=== PATIENT | female | born 1930 | race Two or more races ===

== ENCOUNTER 2017-09-24 10:30 | Outpatient (CLI) | payer MEDICARE, MEDICAID ==
[~2017-09-24 10:30] MED LIST: ALEN70TA45 PO; CALC-20 PO; HYDR25TA9 PO; OMEP20CA10 PO; OSTEO BI-FLEX1 EACH PO; PRED5TAB48 PO
== END 2017-09-24 23:59 | disposition home health service (06) ==
LOC: WOU 10:30
PROVIDERS: ATTEND Podiatrist Foot & Ankle Surgery
DX: I87.311 Chronic venous hypertension (idiopathic) with ulcer of right lower extremity (principal); L97.318 Non-pressure chronic ulcer of right ankle with other specified severity; G90.09 Other idiopathic peripheral autonomic neuropathy; Z96.643 Presence of artificial hip joint, bilateral; Z96.651 Presence of right artificial knee joint; F03.90 Unspecified dementia, unspecified severity, without behavioral disturbance, psychotic disturbance, mood disturbance, and anxiety
CPT/HCPCS: A6402; G0463

== ENCOUNTER 2017-10-05 09:00 | Outpatient (CLI) | payer MEDICARE, MEDICAID | END 2017-10-05 23:59 | disposition home health service (06) | LOC: WOU 09:00 | PROVIDERS: ATTEND Podiatrist Foot & Ankle Surgery | DX: I87.311 Chronic venous hypertension (idiopathic) with ulcer of right lower extremity (principal); L97.312 Non-pressure chronic ulcer of right ankle with fat layer exposed; M79.661 Pain in right lower leg; G90.09 Other idiopathic peripheral autonomic neuropathy; Z96.643 Presence of artificial hip joint, bilateral; Z96.651 Presence of right artificial knee joint; F03.90 Unspecified dementia, unspecified severity, without behavioral disturbance, psychotic disturbance, mood disturbance, and anxiety; Z88.0 Allergy status to penicillin; Z88.2 Allergy status to sulfonamides; Z79.899 Other long term (current) drug therapy | CPT/HCPCS: 11042; A6402; Z7610 ==

== ENCOUNTER 2017-10-12 10:05 | Outpatient (CLI) | payer MEDICARE, MEDICAID | END 2017-10-12 23:59 | disposition home health service (06) | LOC: WOU 10:05 | PROVIDERS: ATTEND Podiatrist Foot & Ankle Surgery | DX: I87.311 Chronic venous hypertension (idiopathic) with ulcer of right lower extremity (principal); L97.312 Non-pressure chronic ulcer of right ankle with fat layer exposed; M79.661 Pain in right lower leg; I87.2 Venous insufficiency (chronic) (peripheral); G90.09 Other idiopathic peripheral autonomic neuropathy | CPT/HCPCS: 11042; A6253; A6402; Z7610 ==

== ENCOUNTER 2017-10-19 10:30 | Outpatient (CLI) | payer MEDICARE, MEDICAID | END 2017-10-19 23:59 | disposition home health service (06) | LOC: WOU 10:30 | PROVIDERS: ATTEND Podiatrist Foot & Ankle Surgery | DX: I87.311 Chronic venous hypertension (idiopathic) with ulcer of right lower extremity (principal); L97.312 Non-pressure chronic ulcer of right ankle with fat layer exposed; M79.661 Pain in right lower leg; I87.2 Venous insufficiency (chronic) (peripheral); G90.09 Other idiopathic peripheral autonomic neuropathy | CPT/HCPCS: 11042; A6402; Z7610 ==

== ENCOUNTER 2017-10-26 10:56 | Outpatient (CLI) | payer MEDICARE, MEDICAID | END 2017-10-26 23:59 | disposition home health service (06) | LOC: WOU 10:56 | PROVIDERS: ATTEND Podiatrist Foot & Ankle Surgery | DX: I87.311 Chronic venous hypertension (idiopathic) with ulcer of right lower extremity (principal); L97.312 Non-pressure chronic ulcer of right ankle with fat layer exposed; M79.661 Pain in right lower leg; G90.09 Other idiopathic peripheral autonomic neuropathy; I73.9 Peripheral vascular disease, unspecified; Z96.643 Presence of artificial hip joint, bilateral; F03.90 Unspecified dementia, unspecified severity, without behavioral disturbance, psychotic disturbance, mood disturbance, and anxiety; Z88.0 Allergy status to penicillin; Z88.2 Allergy status to sulfonamides; Z79.899 Other long term (current) drug therapy | CPT/HCPCS: 11042; A6402; Z7610 ==

== ENCOUNTER 2017-11-02 10:00 | Outpatient (CLI) | payer MEDICARE, MEDICAID | END 2017-11-02 23:59 | disposition home health service (06) | LOC: WOU 10:00 | PROVIDERS: ATTEND Podiatrist Foot & Ankle Surgery | DX: I87.311 Chronic venous hypertension (idiopathic) with ulcer of right lower extremity (principal); L97.312 Non-pressure chronic ulcer of right ankle with fat layer exposed; G90.09 Other idiopathic peripheral autonomic neuropathy; I73.9 Peripheral vascular disease, unspecified; M79.661 Pain in right lower leg; F03.90 Unspecified dementia, unspecified severity, without behavioral disturbance, psychotic disturbance, mood disturbance, and anxiety; Z96.643 Presence of artificial hip joint, bilateral; Z96.651 Presence of right artificial knee joint | CPT/HCPCS: 11042; A6402; Z7610 ==

== ENCOUNTER 2017-11-09 10:54 | Outpatient (CLI) | payer MEDICARE, MEDICAID | END 2017-11-09 23:59 | disposition home or self-care (01) | LOC: WOU 10:54 | PROVIDERS: ATTEND Podiatrist Foot & Ankle Surgery | DX: I87.311 Chronic venous hypertension (idiopathic) with ulcer of right lower extremity (principal); L97.318 Non-pressure chronic ulcer of right ankle with other specified severity; I73.9 Peripheral vascular disease, unspecified; G90.09 Other idiopathic peripheral autonomic neuropathy; M79.661 Pain in right lower leg; F03.90 Unspecified dementia, unspecified severity, without behavioral disturbance, psychotic disturbance, mood disturbance, and anxiety; Z96.643 Presence of artificial hip joint, bilateral; Z96.651 Presence of right artificial knee joint | CPT/HCPCS: G0463; Z7610 ==

== ENCOUNTER 2017-11-16 10:34 | Outpatient (CLI) | payer MEDICARE, MEDICAID | END 2017-11-16 23:59 | disposition home health service (06) | LOC: WOU 10:34 | PROVIDERS: ATTEND Podiatrist Foot & Ankle Surgery | DX: I87.311 Chronic venous hypertension (idiopathic) with ulcer of right lower extremity (principal); L97.322 Non-pressure chronic ulcer of left ankle with fat layer exposed; L03.115 Cellulitis of right lower limb; G90.09 Other idiopathic peripheral autonomic neuropathy; I73.9 Peripheral vascular disease, unspecified; F03.90 Unspecified dementia, unspecified severity, without behavioral disturbance, psychotic disturbance, mood disturbance, and anxiety; Z96.643 Presence of artificial hip joint, bilateral; Z96.651 Presence of right artificial knee joint | CPT/HCPCS: 11042; A6402; Z7610 ==

== ENCOUNTER 2017-11-30 10:15 | Outpatient (CLI) | payer MEDICARE, MEDICAID | END 2017-11-30 23:59 | disposition home health service (06) | LOC: WOU 10:15 | PROVIDERS: ATTEND Podiatrist Foot & Ankle Surgery | DX: I87.311 Chronic venous hypertension (idiopathic) with ulcer of right lower extremity (principal); L97.312 Non-pressure chronic ulcer of right ankle with fat layer exposed; L60.3 Nail dystrophy; G90.09 Other idiopathic peripheral autonomic neuropathy; I73.9 Peripheral vascular disease, unspecified; M79.661 Pain in right lower leg; Z96.643 Presence of artificial hip joint, bilateral; Z96.651 Presence of right artificial knee joint | CPT/HCPCS: 11042; A6402; Z7610 ==

== ENCOUNTER 2017-12-07 11:14 | Outpatient (CLI) | payer MEDICARE, MEDICAID | END 2017-12-07 23:59 | disposition home health service (06) | LOC: WOU 11:14 | PROVIDERS: ATTEND Podiatrist Foot & Ankle Surgery | DX: I87.311 Chronic venous hypertension (idiopathic) with ulcer of right lower extremity (principal); L97.312 Non-pressure chronic ulcer of right ankle with fat layer exposed; M79.661 Pain in right lower leg; I73.9 Peripheral vascular disease, unspecified; G90.09 Other idiopathic peripheral autonomic neuropathy; L60.3 Nail dystrophy; F03.90 Unspecified dementia, unspecified severity, without behavioral disturbance, psychotic disturbance, mood disturbance, and anxiety; Z96.643 Presence of artificial hip joint, bilateral; Z96.651 Presence of right artificial knee joint; Z79.899 Other long term (current) drug therapy | CPT/HCPCS: 11042; A6402; Z7610 ==

== ENCOUNTER 2017-12-23 10:20 | Outpatient (CLI) | payer MEDICARE, MEDICAID | END 2017-12-23 23:59 | disposition home or self-care (01) | LOC: WOU 10:20 | PROVIDERS: ATTEND Podiatrist Foot & Ankle Surgery | DX: I87.311 Chronic venous hypertension (idiopathic) with ulcer of right lower extremity (principal); L97.312 Non-pressure chronic ulcer of right ankle with fat layer exposed; L97.818 Non-pressure chronic ulcer of other part of right lower leg with other specified severity; Z96.643 Presence of artificial hip joint, bilateral; Z96.651 Presence of right artificial knee joint; F03.90 Unspecified dementia, unspecified severity, without behavioral disturbance, psychotic disturbance, mood disturbance, and anxiety; Z88.0 Allergy status to penicillin; Z88.2 Allergy status to sulfonamides; G62.9 Polyneuropathy, unspecified | CPT/HCPCS: A6402; G0463; Z7610 ==

== ENCOUNTER 2018-01-07 10:29 | Outpatient (CLI) | payer MEDICARE, MEDICAID | END 2018-01-07 23:59 | disposition home or self-care (01) | LOC: WOU 10:29 | PROVIDERS: ATTEND Podiatrist Foot & Ankle Surgery | DX: I87.311 Chronic venous hypertension (idiopathic) with ulcer of right lower extremity (principal); L97.818 Non-pressure chronic ulcer of other part of right lower leg with other specified severity; L60.3 Nail dystrophy; M79.661 Pain in right lower leg; G90.09 Other idiopathic peripheral autonomic neuropathy; I73.9 Peripheral vascular disease, unspecified; Z96.643 Presence of artificial hip joint, bilateral; Z96.651 Presence of right artificial knee joint; Z88.1 Allergy status to other antibiotic agents; Z88.0 Allergy status to penicillin; Z88.2 Allergy status to sulfonamides | CPT/HCPCS: A6402; G0463; Z7610 ==

== ENCOUNTER 2018-01-21 10:50 | Outpatient (CLI) | payer MEDICARE, MEDICAID | END 2018-01-21 23:59 | disposition home health service (06) | LOC: WOU 10:50 | PROVIDERS: ATTEND Podiatrist Foot & Ankle Surgery | DX: I87.311 Chronic venous hypertension (idiopathic) with ulcer of right lower extremity (principal); L97.812 Non-pressure chronic ulcer of other part of right lower leg with fat layer exposed; L60.3 Nail dystrophy; G90.09 Other idiopathic peripheral autonomic neuropathy; L84 Corns and callosities; I73.9 Peripheral vascular disease, unspecified; Z96.643 Presence of artificial hip joint, bilateral; Z96.651 Presence of right artificial knee joint | CPT/HCPCS: 11042; A6402; Z7610 ==

== ENCOUNTER 2018-03-11 11:00 | Outpatient (CLI) | payer MEDICARE, MEDICAID | END 2018-03-11 23:59 | disposition home health service (06) | LOC: WOU 11:00 | PROVIDERS: ATTEND Podiatrist Foot & Ankle Surgery | DX: I87.311 Chronic venous hypertension (idiopathic) with ulcer of right lower extremity (principal); L97.812 Non-pressure chronic ulcer of other part of right lower leg with fat layer exposed; L84 Corns and callosities; L60.3 Nail dystrophy; G90.09 Other idiopathic peripheral autonomic neuropathy; I73.9 Peripheral vascular disease, unspecified; Z88.0 Allergy status to penicillin; Z88.2 Allergy status to sulfonamides; F03.90 Unspecified dementia, unspecified severity, without behavioral disturbance, psychotic disturbance, mood disturbance, and anxiety; Z96.643 Presence of artificial hip joint, bilateral; Z96.651 Presence of right artificial knee joint | CPT/HCPCS: A6402; G0463; Z7610 ==

== ENCOUNTER 2018-03-25 10:45 | Outpatient (CLI) | payer MEDICARE, MEDICAID | END 2018-03-25 23:59 | disposition home health service (06) | LOC: WOU 10:45 | PROVIDERS: ATTEND Podiatrist Foot & Ankle Surgery | DX: I87.311 Chronic venous hypertension (idiopathic) with ulcer of right lower extremity (principal); L97.812 Non-pressure chronic ulcer of other part of right lower leg with fat layer exposed; L84 Corns and callosities; M79.662 Pain in left lower leg; L60.3 Nail dystrophy; I73.9 Peripheral vascular disease, unspecified; M79.672 Pain in left foot; F03.90 Unspecified dementia, unspecified severity, without behavioral disturbance, psychotic disturbance, mood disturbance, and anxiety; Z96.643 Presence of artificial hip joint, bilateral; Z96.651 Presence of right artificial knee joint; G62.9 Polyneuropathy, unspecified; Z79.899 Other long term (current) drug therapy | CPT/HCPCS: 11042; 11056; A6402; Z7610 ==

== ENCOUNTER 2018-04-08 11:09 | Outpatient (CLI) | END 2018-04-08 23:59 | disposition home health service (06) | DX: I87.311 Chronic venous hypertension (idiopathic) with ulcer of right lower extremity (principal); L97.812 Non-pressure chronic ulcer of other part of right lower leg with fat layer exposed; L60.3 Nail dystrophy; L84 Corns and callosities; G90.09 Other idiopathic peripheral autonomic neuropathy; L03.115 Cellulitis of right lower limb; I73.9 Peripheral vascular disease, unspecified; I87.2 Venous insufficiency (chronic) (peripheral); F03.90 Unspecified dementia, unspecified severity, without behavioral disturbance, psychotic disturbance, mood disturbance, and anxiety ==

== ENCOUNTER 2018-05-06 10:50 | Outpatient (CLI) | payer MEDICARE, MEDICAID ==
[~2018-05-06 10:50] MED LIST changes: -ALEN70TA45 PO; +ALEN70TA6 PO
== END 2018-05-06 23:59 | disposition home health service (06) ==
LOC: WOU 10:50
PROVIDERS: ATTEND Podiatrist Foot & Ankle Surgery
DX: I87.311 Chronic venous hypertension (idiopathic) with ulcer of right lower extremity (principal); L97.812 Non-pressure chronic ulcer of other part of right lower leg with fat layer exposed; L60.3 Nail dystrophy; I87.2 Venous insufficiency (chronic) (peripheral); L84 Corns and callosities; G90.09 Other idiopathic peripheral autonomic neuropathy; Z96.643 Presence of artificial hip joint, bilateral; Z96.651 Presence of right artificial knee joint; Z79.899 Other long term (current) drug therapy; Z88.1 Allergy status to other antibiotic agents; Z88.0 Allergy status to penicillin; Z88.2 Allergy status to sulfonamides
CPT/HCPCS: 11042; A6402

== ENCOUNTER 2018-05-20 11:10 | Outpatient (CLI) | payer MEDICARE, MEDICAID | END 2018-05-20 23:59 | disposition home health service (06) | LOC: WOU 11:10 | PROVIDERS: ATTEND Podiatrist Foot & Ankle Surgery | DX: I87.311 Chronic venous hypertension (idiopathic) with ulcer of right lower extremity (principal); L97.812 Non-pressure chronic ulcer of other part of right lower leg with fat layer exposed; I73.9 Peripheral vascular disease, unspecified; G90.09 Other idiopathic peripheral autonomic neuropathy; L60.3 Nail dystrophy; L84 Corns and callosities; M79.661 Pain in right lower leg | CPT/HCPCS: 11042; A6402 ==

== ENCOUNTER 2018-06-03 11:05 | Outpatient (CLI) | payer MEDICARE, MEDICAID | END 2018-06-03 23:59 | disposition home health service (06) | LOC: WOU 11:05 | PROVIDERS: ATTEND Podiatrist Foot & Ankle Surgery | DX: I87.311 Chronic venous hypertension (idiopathic) with ulcer of right lower extremity (principal); L97.812 Non-pressure chronic ulcer of other part of right lower leg with fat layer exposed; Z96.643 Presence of artificial hip joint, bilateral; Z96.651 Presence of right artificial knee joint; F03.90 Unspecified dementia, unspecified severity, without behavioral disturbance, psychotic disturbance, mood disturbance, and anxiety; Z88.0 Allergy status to penicillin; Z88.2 Allergy status to sulfonamides; I73.9 Peripheral vascular disease, unspecified; G90.09 Other idiopathic peripheral autonomic neuropathy; L84 Corns and callosities; L60.3 Nail dystrophy | CPT/HCPCS: 11042; A6402 ==

== ENCOUNTER 2018-06-17 10:45 | Outpatient (CLI) | payer MEDICARE, MEDICAID | END 2018-06-17 23:59 | disposition home health service (06) | LOC: WOU 10:45 | PROVIDERS: ATTEND Podiatrist Foot & Ankle Surgery | DX: I87.311 Chronic venous hypertension (idiopathic) with ulcer of right lower extremity (principal); L97.312 Non-pressure chronic ulcer of right ankle with fat layer exposed; L84 Corns and callosities; L60.3 Nail dystrophy; I73.9 Peripheral vascular disease, unspecified; G90.09 Other idiopathic peripheral autonomic neuropathy; Z96.643 Presence of artificial hip joint, bilateral; Z96.651 Presence of right artificial knee joint; M79.672 Pain in left foot; M79.671 Pain in right foot; Z79.899 Other long term (current) drug therapy | CPT/HCPCS: 11042; 11056; A6402 ==

== ENCOUNTER 2018-07-01 11:30 | Outpatient (CLI) | payer MEDICARE, MEDICAID | END 2018-07-01 23:59 | disposition home health service (06) | LOC: WOU 11:30 | PROVIDERS: ATTEND Podiatrist Foot & Ankle Surgery | DX: I87.311 Chronic venous hypertension (idiopathic) with ulcer of right lower extremity (principal); L97.312 Non-pressure chronic ulcer of right ankle with fat layer exposed; M79.662 Pain in left lower leg; M79.661 Pain in right lower leg; L60.3 Nail dystrophy; G90.09 Other idiopathic peripheral autonomic neuropathy; I73.9 Peripheral vascular disease, unspecified; F03.90 Unspecified dementia, unspecified severity, without behavioral disturbance, psychotic disturbance, mood disturbance, and anxiety; Z79.899 Other long term (current) drug therapy | CPT/HCPCS: 11042; A6402 ==

== ENCOUNTER 2018-07-08 11:30 | Outpatient (CLI) | payer MEDICARE, MEDICAID ==
[2018-07-08] MEDS ORDERED: ETHYL CHLORIDE SPRAY 1 EA BOTTLE TP ONE (13:30)
== END 2018-07-08 23:59 | disposition home health service (06) ==
LOC: WOU 11:30
PROVIDERS: ATTEND Podiatrist Foot & Ankle Surgery
DX: I87.311 Chronic venous hypertension (idiopathic) with ulcer of right lower extremity (principal); L97.812 Non-pressure chronic ulcer of other part of right lower leg with fat layer exposed; M79.662 Pain in left lower leg; L60.3 Nail dystrophy; G90.09 Other idiopathic peripheral autonomic neuropathy; I73.9 Peripheral vascular disease, unspecified; Z96.643 Presence of artificial hip joint, bilateral; Z96.651 Presence of right artificial knee joint; Z79.899 Other long term (current) drug therapy
CPT/HCPCS: 11042; A6402; J3490; 88305-TC; 88312-TC

== ENCOUNTER 2018-07-22 11:30 | Outpatient (CLI) | payer MEDICARE, MEDICAID | END 2018-07-22 23:59 | disposition home health service (06) | LOC: WOU 11:30 | PROVIDERS: ATTEND Podiatrist Foot & Ankle Surgery | DX: I87.311 Chronic venous hypertension (idiopathic) with ulcer of right lower extremity (principal); L97.822 Non-pressure chronic ulcer of other part of left lower leg with fat layer exposed; L84 Corns and callosities; L60.3 Nail dystrophy; G90.09 Other idiopathic peripheral autonomic neuropathy; I73.9 Peripheral vascular disease, unspecified; Z96.643 Presence of artificial hip joint, bilateral; Z96.651 Presence of right artificial knee joint; Z79.899 Other long term (current) drug therapy | CPT/HCPCS: 11042; A6402 ==

== ENCOUNTER → 2020-05-25 | Outpatient (CLI) | payer MEDICARE, MEDICAID ==
[~2020-05-25] MED LIST changes: -ALEN70TA6 PO; +ALEN70TA80 PO; +CALC-1180 PO; -CALC-20 PO; -OMEP20CA10 PO; +OMEP20CA15 PO
== END | disposition home or self-care (01) ==
LOC: MSC 14:30
PROVIDERS: ATTEND Internal Medicine
DX: Z09 Encounter for follow-up examination after completed treatment for conditions other than malignant neoplasm (principal); R42 Dizziness and giddiness; M79.673 Pain in unspecified foot; N04.0 Nephrotic syndrome with minor glomerular abnormality; I82.409 Acute embolism and thrombosis of unspecified deep veins of unspecified lower extremity; G90.09 Other idiopathic peripheral autonomic neuropathy; M81.0 Age-related osteoporosis without current pathological fracture; G44.229 Chronic tension-type headache, not intractable; I10 Essential (primary) hypertension; H26.9 Unspecified cataract; D64.9 Anemia, unspecified; R73.9 Hyperglycemia, unspecified; R60.9 Edema, unspecified; H91.90 Unspecified hearing loss, unspecified ear; Z79.899 Other long term (current) drug therapy

== ENCOUNTER → 2020-06-08 | Outpatient (CLI) | payer MEDICARE, MEDICAID | END | disposition home or self-care (01) | LOC: MSC 17:15 | PROVIDERS: ATTEND Internal Medicine | DX: N04.0 Nephrotic syndrome with minor glomerular abnormality (principal); I82.409 Acute embolism and thrombosis of unspecified deep veins of unspecified lower extremity; E11.9 Type 2 diabetes mellitus without complications; G90.09 Other idiopathic peripheral autonomic neuropathy; M81.0 Age-related osteoporosis without current pathological fracture; M19.90 Unspecified osteoarthritis, unspecified site; G44.229 Chronic tension-type headache, not intractable; M79.673 Pain in unspecified foot; R42 Dizziness and giddiness; I10 Essential (primary) hypertension; H26.9 Unspecified cataract; D64.9 Anemia, unspecified; R60.9 Edema, unspecified; H91.90 Unspecified hearing loss, unspecified ear; Z79.899 Other long term (current) drug therapy ==

== ENCOUNTER 2020-06-27 10:15 | Outpatient (CLI) | payer MEDICARE, MEDICAID | END 2020-06-27 23:59 | disposition home or self-care (01) | LOC: MSC 10:15 | PROVIDERS: ATTEND Internal Medicine | DX: N04.0 Nephrotic syndrome with minor glomerular abnormality (principal); I82.409 Acute embolism and thrombosis of unspecified deep veins of unspecified lower extremity; G90.09 Other idiopathic peripheral autonomic neuropathy; M81.0 Age-related osteoporosis without current pathological fracture; M19.90 Unspecified osteoarthritis, unspecified site; G44.229 Chronic tension-type headache, not intractable; M79.673 Pain in unspecified foot; R42 Dizziness and giddiness; I10 Essential (primary) hypertension; H26.9 Unspecified cataract; D64.9 Anemia, unspecified; R73.9 Hyperglycemia, unspecified; R60.9 Edema, unspecified; H91.90 Unspecified hearing loss, unspecified ear; Z79.899 Other long term (current) drug therapy ==

== ENCOUNTER 2020-07-18 10:11 | Outpatient (CLI) | payer MEDICARE, OTHER | END 2020-07-18 23:59 | disposition home or self-care (01) | LOC: CT 10:11 | PROVIDERS: ATTEND Internal Medicine | DX: E04.2 Nontoxic multinodular goiter (principal); I70.0 Atherosclerosis of aorta; I65.23 Occlusion and stenosis of bilateral carotid arteries; M40.292 Other kyphosis, cervical region; M47.812 Spondylosis without myelopathy or radiculopathy, cervical region; I67.82 Cerebral ischemia | CPT/HCPCS: 70450-TC; 70490-TC ==

== ENCOUNTER 2020-07-25 10:15 | Outpatient (CLI) | payer MEDICARE, OTHER | END 2020-07-25 23:59 | disposition home or self-care (01) | LOC: MSC 10:15 | PROVIDERS: ATTEND Internal Medicine | DX: Z09 Encounter for follow-up examination after completed treatment for conditions other than malignant neoplasm (principal); E04.1 Nontoxic single thyroid nodule; N04.0 Nephrotic syndrome with minor glomerular abnormality; W19.XXXA Unspecified fall, initial encounter; I82.409 Acute embolism and thrombosis of unspecified deep veins of unspecified lower extremity; G90.09 Other idiopathic peripheral autonomic neuropathy; M81.0 Age-related osteoporosis without current pathological fracture; M15.0 Primary generalized (osteo)arthritis; G44.229 Chronic tension-type headache, not intractable; R42 Dizziness and giddiness; I10 Essential (primary) hypertension; R73.9 Hyperglycemia, unspecified; R60.9 Edema, unspecified; Z88.1 Allergy status to other antibiotic agents ==

== ENCOUNTER 2020-07-30 10:20 | Outpatient (CLI) | payer MEDICARE, OTHER ==
[2020-07-30] MEDS ORDERED: COLLAGENASE 5 GM TUBE UD TP ONE (11:10)
== END 2020-07-30 23:59 | disposition home health service (06) ==
LOC: WOU 10:20
PROVIDERS: ATTEND Podiatrist Foot & Ankle Surgery
DX: I87.311 Chronic venous hypertension (idiopathic) with ulcer of right lower extremity (principal); L97.312 Non-pressure chronic ulcer of right ankle with fat layer exposed; G90.09 Other idiopathic peripheral autonomic neuropathy; I87.2 Venous insufficiency (chronic) (peripheral); I10 Essential (primary) hypertension; M79.661 Pain in right lower leg; E04.1 Nontoxic single thyroid nodule; Z91.81 History of falling; Z79.899 Other long term (current) drug therapy
CPT/HCPCS: 11042; 76536-TC

== ENCOUNTER 2020-08-07 10:14 | Outpatient (CLI) | payer MEDICARE, OTHER | END 2020-08-07 23:59 | disposition home or self-care (01) | LOC: CARD 10:14 | PROVIDERS: ATTEND Podiatrist Foot & Ankle Surgery | DX: L97.519 Non-pressure chronic ulcer of other part of right foot with unspecified severity (principal) | CPT/HCPCS: 93970-TC ==

== ENCOUNTER 2020-08-09 09:15 | Outpatient (CLI) | payer MEDICARE, OTHER ==
[2020-08-09] MEDS ORDERED: SILVER SULFADIAZINE CREAM 25 GM TUBE ONE (09:48)
[2020-08-09] MEDS ORDERED: COLLAGENASE 5 GM TUBE UD TP ONE (09:51)
== END 2020-08-09 23:59 | disposition home health service (06) ==
LOC: WOU 09:15
PROVIDERS: ATTEND Podiatrist Foot & Ankle Surgery
DX: I87.313 Chronic venous hypertension (idiopathic) with ulcer of bilateral lower extremity (principal); L97.312 Non-pressure chronic ulcer of right ankle with fat layer exposed; L97.822 Non-pressure chronic ulcer of other part of left lower leg with fat layer exposed; I87.2 Venous insufficiency (chronic) (peripheral); G90.09 Other idiopathic peripheral autonomic neuropathy; I10 Essential (primary) hypertension; M79.661 Pain in right lower leg; Z91.81 History of falling; Z79.899 Other long term (current) drug therapy
CPT/HCPCS: 11042

== ENCOUNTER 2020-08-15 10:00 | Outpatient (CLI) | payer MEDICARE, OTHER ==
[2020-08-15] MEDS ORDERED: COLLAGENASE 5 GM TUBE UD TP ONE (10:17)
[2020-08-15 11:13] LABS: CALCIUM, SERUM 8.7 mg/dL (8.5-10.1); POTASSIUM 3.9 mmol/L (3.5-5.1)
== END 2020-08-15 23:59 | disposition home or self-care (01) ==
LOC: VASLAB 10:00
PROVIDERS: ATTEND Internal Medicine
DX: I87.2 Venous insufficiency (chronic) (peripheral) (principal); S81.809D Unspecified open wound, unspecified lower leg, subsequent encounter; X58.XXXD Exposure to other specified factors, subsequent encounter; M25.562 Pain in left knee; M25.561 Pain in right knee; M25.552 Pain in left hip; M25.551 Pain in right hip
CPT/HCPCS: 36415; 80048; 84134; G0463

== ENCOUNTER 2020-08-16 09:00 | Outpatient (CLI) | payer MEDICARE, OTHER ==
[2020-08-16] MEDS ORDERED: LIDOCAINE SOLN 4% 50 ML BOTTLE ONE (09:32)
[2020-08-16] MEDS ORDERED: COLLAGENASE 5 GM TUBE UD TP ONE (10:29)
== END 2020-08-16 23:59 | disposition home health service (06) ==
LOC: WOU 09:00
PROVIDERS: ATTEND Podiatrist Foot & Ankle Surgery
DX: I87.313 Chronic venous hypertension (idiopathic) with ulcer of bilateral lower extremity (principal); L97.312 Non-pressure chronic ulcer of right ankle with fat layer exposed; L97.822 Non-pressure chronic ulcer of other part of left lower leg with fat layer exposed; I87.2 Venous insufficiency (chronic) (peripheral); G90.09 Other idiopathic peripheral autonomic neuropathy; M79.661 Pain in right lower leg; I10 Essential (primary) hypertension; Z91.81 History of falling; Z79.899 Other long term (current) drug therapy
CPT/HCPCS: 11042; 97605-TC

== ENCOUNTER 2020-08-21 10:00 | Outpatient (CLI) | payer MEDICARE, OTHER | END 2020-08-21 23:59 | disposition home or self-care (01) | LOC: MSC 10:00 | PROVIDERS: ATTEND Internal Medicine | DX: E04.1 Nontoxic single thyroid nodule (principal); R41.3 Other amnesia; S81.802D Unspecified open wound, left lower leg, subsequent encounter; R53.83 Other fatigue; N04.0 Nephrotic syndrome with minor glomerular abnormality; I82.409 Acute embolism and thrombosis of unspecified deep veins of unspecified lower extremity; G90.09 Other idiopathic peripheral autonomic neuropathy; M81.0 Age-related osteoporosis without current pathological fracture; M19.90 Unspecified osteoarthritis, unspecified site; G44.229 Chronic tension-type headache, not intractable; M79.673 Pain in unspecified foot; R42 Dizziness and giddiness; I10 Essential (primary) hypertension; H26.9 Unspecified cataract; R73.9 Hyperglycemia, unspecified; R60.9 Edema, unspecified; H91.90 Unspecified hearing loss, unspecified ear ==

== ENCOUNTER 2020-08-23 09:00 | Outpatient (CLI) | payer MEDICARE, OTHER ==
[2020-08-23] MEDS ORDERED: COLLAGENASE 5 GM TUBE UD TP ONE (10:03)
[2020-08-23] MEDS ORDERED: UREA 10% -AHA 4% CREAM 57 GM TUBE ONE (10:12)
== END 2020-08-23 23:59 | disposition home health service (06) ==
LOC: WOU 09:00
PROVIDERS: ATTEND Podiatrist Foot & Ankle Surgery
DX: I87.313 Chronic venous hypertension (idiopathic) with ulcer of bilateral lower extremity (principal); L97.312 Non-pressure chronic ulcer of right ankle with fat layer exposed; L97.822 Non-pressure chronic ulcer of other part of left lower leg with fat layer exposed; L97.828 Non-pressure chronic ulcer of other part of left lower leg with other specified severity; I87.2 Venous insufficiency (chronic) (peripheral); G90.09 Other idiopathic peripheral autonomic neuropathy; I10 Essential (primary) hypertension; M79.661 Pain in right lower leg; Z91.81 History of falling; Z79.899 Other long term (current) drug therapy
CPT/HCPCS: 11042

== ENCOUNTER → 2020-08-28 | Outpatient (CLI) | payer MEDICARE, OTHER ==
[~2020-08-28] MED LIST changes: +CT SWABBABLE VALVE TRANS SET 1 EA INFUS.SET MC ONE; +IOHEXOL-350 100 ML VIAL IV ONE
== END | disposition home or self-care (01) ==
LOC: CT 10:16
PROVIDERS: ATTEND Internal Medicine
DX: I70.203 Unspecified atherosclerosis of native arteries of extremities, bilateral legs (principal); I51.7 Cardiomegaly; K80.20 Calculus of gallbladder without cholecystitis without obstruction; N28.1 Cyst of kidney, acquired; Z96.643 Presence of artificial hip joint, bilateral
CPT/HCPCS: 75635; Q9967

== ENCOUNTER 2020-08-29 09:45 | Outpatient (CLI) | payer MEDICARE, OTHER ==
[~2020-08-29 09:45] MED LIST changes: -CT SWABBABLE VALVE TRANS SET 1 EA INFUS.SET MC ONE; -IOHEXOL-350 100 ML VIAL IV ONE
== END 2020-08-29 23:59 | disposition home or self-care (01) ==
LOC: VASLAB 09:45
PROVIDERS: ATTEND Internal Medicine
DX: I87.2 Venous insufficiency (chronic) (peripheral) (principal); S91.002D Unspecified open wound, left ankle, subsequent encounter; S91.001D Unspecified open wound, right ankle, subsequent encounter; X58.XXXD Exposure to other specified factors, subsequent encounter; R60.0 Localized edema
CPT/HCPCS: G0463

== ENCOUNTER 2020-08-30 09:20 | Outpatient (CLI) | payer MEDICARE, OTHER ==
[2020-08-30] MEDS ORDERED: LIDOCAINE SOLN 4% 50 ML BOTTLE ONE (09:40)
[2020-08-30] MEDS ORDERED: COLLAGENASE 5 GM TUBE UD TP ONE (10:19)
== END 2020-08-30 23:59 | disposition home or self-care (01) ==
LOC: WOU 09:20
PROVIDERS: ATTEND Podiatrist Foot & Ankle Surgery
DX: I87.313 Chronic venous hypertension (idiopathic) with ulcer of bilateral lower extremity (principal); L97.312 Non-pressure chronic ulcer of right ankle with fat layer exposed; L97.828 Non-pressure chronic ulcer of other part of left lower leg with other specified severity; I87.2 Venous insufficiency (chronic) (peripheral); M79.661 Pain in right lower leg; G90.09 Other idiopathic peripheral autonomic neuropathy; I10 Essential (primary) hypertension; Z91.81 History of falling; Z79.899 Other long term (current) drug therapy
CPT/HCPCS: 11042

== ENCOUNTER 2020-09-06 11:00 | Outpatient (CLI) | payer MEDICARE, OTHER ==
[2020-09-06] MEDS ORDERED: HYDROCORTISONE 1% CREAM 28.35 GM TUBE TP ONE (11:15)
[2020-09-06] MEDS ORDERED: LIDOCAINE SOLN 4% 50 ML BOTTLE ONE (11:15)
== END 2020-09-06 23:59 | disposition home health service (06) ==
LOC: WOU 11:00
PROVIDERS: ATTEND Podiatrist Foot & Ankle Surgery
DX: I87.313 Chronic venous hypertension (idiopathic) with ulcer of bilateral lower extremity (principal); L97.312 Non-pressure chronic ulcer of right ankle with fat layer exposed; L97.818 Non-pressure chronic ulcer of other part of right lower leg with other specified severity; L97.828 Non-pressure chronic ulcer of other part of left lower leg with other specified severity; I87.2 Venous insufficiency (chronic) (peripheral); M79.661 Pain in right lower leg; G90.09 Other idiopathic peripheral autonomic neuropathy; I10 Essential (primary) hypertension; Z91.81 History of falling; Z79.899 Other long term (current) drug therapy
CPT/HCPCS: 11042

== ENCOUNTER 2020-09-13 10:00 | Outpatient (CLI) | payer MEDICARE, OTHER ==
[2020-09-13] MEDS ORDERED: LIDOCAINE SOLN 4% 50 ML BOTTLE ONE (10:51)
[2020-09-13] MEDS ORDERED: HYDROCORTISONE 1% CREAM 28.35 GM TUBE TP ONE (11:25)
== END 2020-09-13 23:59 | disposition home health service (06) ==
LOC: WOU 10:00
PROVIDERS: ATTEND Podiatrist Foot & Ankle Surgery
DX: I87.311 Chronic venous hypertension (idiopathic) with ulcer of right lower extremity (principal); L97.312 Non-pressure chronic ulcer of right ankle with fat layer exposed; I87.2 Venous insufficiency (chronic) (peripheral); G90.09 Other idiopathic peripheral autonomic neuropathy; M79.661 Pain in right lower leg; I10 Essential (primary) hypertension; Z91.81 History of falling; Z79.899 Other long term (current) drug therapy
CPT/HCPCS: 11042

== ENCOUNTER 2020-09-20 10:30 | Outpatient (CLI) | payer MEDICARE, OTHER ==
[~2020-09-20 10:30] MED LIST changes: +LIDOCAINE SOLN 4% 50 ML BOTTLE ONE
== END 2020-09-20 23:59 | disposition home health service (06) ==
LOC: WOU 10:30
PROVIDERS: ATTEND Podiatrist Foot & Ankle Surgery
DX: I87.311 Chronic venous hypertension (idiopathic) with ulcer of right lower extremity (principal); L97.312 Non-pressure chronic ulcer of right ankle with fat layer exposed; I87.2 Venous insufficiency (chronic) (peripheral); G90.09 Other idiopathic peripheral autonomic neuropathy; I10 Essential (primary) hypertension; M79.661 Pain in right lower leg; Z79.899 Other long term (current) drug therapy
CPT/HCPCS: 11042

== ENCOUNTER 2020-09-25 14:39 | Inpatient (IN) | payer MEDICARE, OTHER ==
[~2020-09-25] VITALS: Ht 160 cm; Wt 88.9 kg
[~2020-09-25 14:39] MED LIST changes: -LIDOCAINE SOLN 4% 50 ML BOTTLE ONE
--- NOTE | 2020-09-25 14:50 | NUR ---
BIB ra c/o weakness and more altered than normal. Patient a/ox0, unresponsive, slightly opens eyes, but unable to follow commands. Per son at bedside, LKW is at 1230. Patient assisted to bed, changed into a gown, attached to the cardiac rehab nurse.
--- NOTE | 2020-09-25 15:05 | NUR ---
CODE STROKE ACTVATED.
--- NOTE | 2020-09-25 15:20 | NUR ---
SWALLOW EVAL- FAILED. PT IS NOT ALERT.
[2020-09-25 15:21] LABS: BASOPHILS # (AUTO) 0.1 /CMM (0.0-0.2); BASOPHILS % (AUTO) 0.4 % (0.0-2.0); EOSINOPHILS % (AUTO) 0.3 % (0.0-6.0); HEMATOCRIT 36 % (33-45); HEMOGLOBIN 11.2 g/dL (11.5-14.8); LYMPHOCYTES # (AUTO) 0.7 /CMM (0.8-4.8); LYMPHOCYTES % (AUTO) 2.9 % (20.0-44.0); MEAN CORPUSCULAR HGB CONC 32 g/dl (31.0-36.0); MEAN CORPUSCULAR VOLUME 104 fL (82-100); MONOCYTES % (AUTO) 4.3 % (2.0-12.0); NEUTROPHILS # (AUTO) 20.6 /CMM (1.8-8.9); NEUTROPHILS % (AUTO) 92.1 % (43.0-81.0); PLATELET COUNT (AUTO) 220 /CMM (150-450); RED BLOOD CELL COUNT(AUTO) 3.41 MIL/uL (4.0-5.2); WHITE BLOOD COUNT (AUTO) 22.4 K/uL (4.3-11.0)
--- NOTE | 2020-09-25 15:21 | NUR ---
TELE NEURO DR. WELCH ON TELE CAMERA.
[2020-09-25] MEDS ORDERED: DULO30CA52 PO (15:29)
[2020-09-25] MEDS ORDERED: POTA10TA10 PO (15:29)
[2020-09-25] MEDS ORDERED: CHOL100062 PO (15:29)
[2020-09-25] MEDS ORDERED: FURO20TA4 PO (15:29)
[2020-09-25] MEDS ORDERED: GLUC-236 PO (15:29)
[2020-09-25] MEDS ORDERED: MAGN400T26 PO (15:29)
[2020-09-25] MEDS ORDERED: GABA-532 PO (15:29)
[2020-09-25] MEDS ORDERED: ASCO-352 PO (15:29)
[2020-09-25] MEDS ORDERED: FOLI-85 PO (15:29)
[2020-09-25] MEDS ORDERED: CALC-1143 PO (15:29)
[2020-09-25] MEDS ORDERED: LOSA25TA27 PO (15:29)
[2020-09-25] MEDS ORDERED: ACETAMINOPHEN 650 MG/SUPP.RECT RC ONE ×2 (15:30→15:36)
--- NOTE | 2020-09-25 15:30 | NUR ---
NO TPA RECOMMENDED BY DR. WELCH.
[2020-09-25 15:38] LABS: CALCIUM, SERUM 8.9 mg/dL (8.5-10.1); POTASSIUM 4.5 mmol/L (3.5-5.1)
--- NOTE | 2020-09-25 15:40 | NUR ---
COOLING MEASURES PROVIDED. DIAPER CHANGED.
[2020-09-25] MEDS ORDERED: MEROPENEM 1,000 MG in IV NS 0.9% 100 ML IV ONE (16:00)
[2020-09-25] MEDS ORDERED: VANCOMYCIN 1 GM in IV D5W 250 ML IV ONE (16:00)
[2020-09-25 16:02] LABS: ALANINE AMINOTRANSFERASE 21 U/L (12-78); ALBUMIN 3.4 g/dL (3.4-5.0); ALKALINE PHOSPHATASE 94 U/L (46-116); ASPARTATE AMINOTRANSFERASE 32 U/L (15-37); BILIRUBIN,DIRECT 0.1 mg/dL (0.0-0.2); BILIRUBIN,TOTAL 0.5 mg/dL (0.2-1.0); TOTAL PROTEIN, SERUM 8.2 g/dL (6.4-8.2)
[2020-09-25] MEDS ORDERED: IOHEXOL-350 100 ML VIAL IV ONE (16:27)
[2020-09-25] MEDS ORDERED: IV NS 0.9% 250 ML IV ONE (16:27)
--- NOTE | 2020-09-25 16:28 | NUR ---
UA SENT TO LAB
--- NOTE | 2020-09-25 16:33 | NUR ---
PATIENT TRANSFERRED TO RADIOLOGY FOR CTA.
[2020-09-25 16:57] LABS: BILIRUBIN,URINE NEGATIVE (NEGATIVE); COLOR,URINE YELLOW (YELLOW); LEUKOCYTE ESTERASE ,URINE NEGATIVE (NEGATIVE); NITRITE, URINE NEGATIVE (NEGATIVE); PROTEIN,URINE NEGATIVE (NEGATIVE); UGLUCOSE NEGATIVE (NEGATIVE); UROBILINOGEN,URINE 0.2 EU/dL (0.2)
--- NOTE | 2020-09-25 17:12 | NUR ---
ROOM 304-2
[2020-09-25 17:20] LABS: BACTERIA,URINE None seen /HPF (None Seen); MUCUS,URINE Few /LPF (None Seen); SQUAMOUS EPITHELIAL CELL,UR Few /HPF (None Seen)
--- NOTE | 2020-09-25 17:30 | NUR ---
CALLED DR. PANCHAL, [facility] WILL ADMIT.
--- NOTE | 2020-09-25 17:39 | NUR ---
REPORT GIVEN TO SHAGGY CARTER FOR NAE.
--- NOTE | 2020-09-25 17:50 | NUR ---
[facility] [phone]
[2020-09-25] MEDS ORDERED: IV NS 0.9% 1,000 ML BAG IV ONE (18:00)
--- NOTE | 2020-09-25 18:45 | NUR ---
US TECH AT BEDSIDE
[2020-09-25] MEDS ORDERED: Z GUARD REMEDY 2 OZ OINT TP PRN (19:00)
[2020-09-25] MEDS ORDERED: hydrALAZINE HCL IV 20 MG VIAL IV PRN (19:00)
[2020-09-25] MEDS ORDERED: MAG HYDROX/AL HYDROX/SIMETH 30 ML UDC PO PRN (19:00)
[2020-09-25 19:20] VITALS: BP 109/55
--- NOTE | 2020-09-25 19:25 | NUR ---
PATIENT ARRIVED FROM ER, AWAKE, CONFUSED. NO S/S OF DISTRESS NOTED. SON CAME AND STAYED. CALL LIGHT WITHIN REACH. BED ALARM ON. BED IN LOWEST AND LOCKED POSITION. HOB ELEVATED AT ALL TIMES. ON O2 AT 4L/MIN NASAL CANNULA. WITH WOUNDS ON LOWER EXTREMITIES, CLEANED WITH NS AND COVERED WITH NON ADHESIVE GAUZES. WOUND CARE CONSULT WILL ORDER. KEPT THE PT CLEAN AND DRY. TURNED AND REPOSITIONED. HEELS OFFLOADED.
--- NOTE | 2020-09-25 19:34 | NUR ---
PATIENT TRANSFERRED TO ROOM 304-2 VIA ACLS PROTOCOL. RLE SWABBED FOR WOUND CULTURE AND SENT TO LAB. NO VISIBLE WOUND ON LLE. PATIENT IN STABLE CONDITION.
--- NOTE | 2020-09-25 20:51 | NUR ---
RECEIVED LACTIC REPORT FROM CHARGE NURSE YASMIN, LACTIC ACID =3.9, CALLED THE [facility] AND WILL PAGE DR SEGUNDO.
[2020-09-25] MEDS ORDERED: MEROPENEM 500 MG in IV NS 0.9% 50 ML IV SCH (21:00)
--- NOTE | 2020-09-25 21:13 | NUR ---
RECEIVED A CALL BACK FROM DR SEGUNDO AND INFORMED LACTIC ACID 3.9, WITH ORDER TO CHECK THE LACTIC ACID IN 6 HOURS, AND CARRIED OUT.
[2020-09-25] MEDS: IV NS 0.9% 1,000 ML IV PRN (21:37)
[2020-09-25] MEDS: ENOXAPARIN SODIUM 40 MG/0.4 ML DISP.SYRIN SQ SCH (21:40)
[2020-09-26] VITALS: BP 124/61
--- NOTE | 2020-09-26 01:34 | NUR ---
RECEIVED A CALL FROM LAB FOR REPEATED LACTIC ACID 3.2, RELAYED TO DR SEGUNDO WITH ORDER TO REPEAT AGAIN AT 0700. AND ALSO INFORMED RE: PATIENT'S HOME MEDS.,
[2020-09-26 04:00] VITALS: BP 119/59
--- NOTE | 2020-09-26 04:17 | NUR ---
RECEIVED A CALL FROM THE LAB FOR BLOOD CULTURE RESULTS, PAGED DR SEGUNDO.
--- NOTE | 2020-09-26 04:52 | NUR ---
RECEIVED THE CALL BACK FROM DR SEGUNDO AND RELAYED RESULTS OF BLOOD CULTURE PRELIMINARY, GRAM POSITIVE COCCI IN CHAIN.
[2020-09-26] MEDS: MEROPENEM 1 G in IV NS 0.9% 100 ML IV SCH ×2 (05:03→15:51)
[2020-09-26] MEDS: ACETAMINOPHEN 325 MG TABLET PO PRN ×3 (05:03→22:53)
[2020-09-26 05:49] LABS: BASOPHILS % (AUTO) 0.1 % (0.0-2.0); HEMATOCRIT 33 % (33-45); HEMOGLOBIN 10.8 g/dL (11.5-14.8); LYMPHOCYTES # (AUTO) 0.7 /CMM (0.8-4.8); MEAN CORPUSCULAR HGB CONC 33 g/dl (31.0-36.0); MEAN CORPUSCULAR VOLUME 101 fL (82-100); MONOCYTES # (AUTO) 1.7 /CMM (0.1-1.30); NEUTROPHILS # (AUTO) 31.1 /CMM (1.8-8.9); NEUTROPHILS % (AUTO) 92.9 % (43.0-81.0); PLATELET COUNT (AUTO) 216 /CMM (150-450); RED BLOOD CELL COUNT(AUTO) 3.29 MIL/uL (4.0-5.2)
[2020-09-26 06:01] LABS: CALCIUM, SERUM 8.1 mg/dL (8.5-10.1); MAGNESIUM 2.1 mg/dL (1.8-2.4); PHOSPHORUS 3.2 mg/dL (2.5-4.9); POTASSIUM 3.7 mmol/L (3.5-5.1)
[2020-09-26 06:46] LABS: WHITE BLOOD COUNT (AUTO) 33.5 K/uL (4.3-11.0)
--- NOTE | 2020-09-26 06:54 | NUR ---
PAGED DR SEGUNDO RE: REPEATED LACTIC ACID RESULT=3.0, AND WBC=33.5, WAITING FOR THE RESPONSE.
--- NOTE | 2020-09-26 06:58 | NUR ---
SECURITY OFFICER SUPERVISOR CLOSING NOTES: PATIENT IN BED, ASLEEP. NO S/S OF DISTRESS NOTED. CALL LIGHT WITHIN REACH. BED ALARM ON. BED IN LOWEST AND LOCKED POSITION. HOB ELEVATED AT ALL TIMES. HEELS OFFLOADED. TURNED AND REPOSITIONED [id number].
--- NOTE | 2020-09-26 07:10 | NUR ---
JAVA PROGRAMMER ANALYST OPENING NOTE PATIENT RECEIVED ALERT AND ORIENTED X 1-2 ON BED. PATIENT ON OXYGEN AT 4 LITERS PER MINUTE WITH NON LABORED AND EVEN/ REGULAR BREATHING, WITH NO SIGNS OF RESPIRATORY DISTRESS. PATIENT SATURATING AT 96%. PATIENT WITH IV ACCESS ON LEFT HAND G#20 AND LEFT AC G#18, BOTH ACCESS PATENT AND INTACT. PATIENT WITH WOUND ON THE RIGHT LOWER EXTREMITY COVERED WITH DRESSING, DRY AND INTACT, AWAITING WOUND CONSULT. SAFETY MEASURES ENSURED WITH SIDERAILS UP, BEDS LOCKED AND AT LOWEST POSITION. CALL LIGHT AND TABLE WITHIN REACH AT ALL TIMES. WILL CONTINUE TO MONITOR PATIENT.
[2020-09-26 08:00] VITALS: BP 131/72
--- NOTE | 2020-09-26 09:07 | NUR ---
WOUND CARE CONSULT: PT PRESENTS WITH LOWER EXTREMITY WOUNDS, PRESENT ON ADMISSION. DRESSINGS ARE DRY AND INTACT WITH ADMISSION PHOTOS IN CHART. DR HYMAN FOLLOWING PT FOR WOUND TREATMENT. RECOMMENDATIONS MADE FOR SKIN PROTECTION. DISCUSSED WITH NURSING STAFF. PT IS INCONTINENT. MD IN AGREEMENT WITH PLAN OF CARE.
[2020-09-26] MEDS: LOSARTAN POTASSIUM 25 MG TABLET PO SCH (10:14)
[2020-09-26] MEDS: GABAPENTIN 300 MG CAPSULE PO SCH (10:14)
--- NOTE | 2020-09-26 10:15 | NUR ---
DIE CAST TECHNICIAN NOTES PATIENT SEEN BY SUPERINTENDENT POLICE. WILL CONTINUE TO MONITOR PATIENT.
[2020-09-26 10:29] LABS: BAND % (MANUAL) 3 % (0.0-5.0); LYMPHOCYTES % (MANUAL) 2 % (16-48); MONOCYTES % (MANUAL) 7 % (0-11.0); NEUTROPHILS % (MANUAL) 88 (42-76)
--- NOTE | 2020-09-26 12:55 | NUR ---
FIELD ASSEMBLY SUPERVISOR NOTES PATIENT COMPLAINED OF PAIN ON BOTH LOWER EXTREMITIES 06/20, WITH SON AT BEDSIDE. PATIENT REQUESTED FOR PAIN MEDICATION. TYLENOL GIVEN ORDERED. IN STABLE CONDITION.
[2020-09-26] MEDS: IV NS 0.9% 1,000 ML IV PRN (12:57)
--- NOTE | 2020-09-26 13:25 | NUR ---
LAB DIRECTOR NOTES PATIENT REASSESSED FOR PAIN. PATIENT IS NOW SLEEPING AND DOES NOT SHOW ANY SIGNS OF PAIN. WILL CONTINUE TO MONITOR PATIENT.
--- NOTE | 2020-09-26 14:30 | NUR ---
TOOL RENTAL TECHNICIAN NOTE PATIENT SEEN BY ID DOCTOR. AWAITING ORDERS. WILL CONTINUE TO MONITOR PATIENT.
--- NOTE | 2020-09-26 15:34 | NUR ---
CHIEF CONTRACT OFFICER NOTE PER SON ILYA, PATIENT IS ON DULOXETINE 30MG TWICE A DAY. DR. FLOWER NOTIFIED. WILL CONTINUE TO MONITOR PATIENT.
[2020-09-26] MEDS ORDERED: VANCOMYCIN 1.25 GM in IV D5W 250 ML IV SCH (17:00)
--- NOTE | 2020-09-26 18:00 | NUR ---
UI LEAD DEVELOPER NOTES PATIENT SEEN BY NEPRHOLOGIST
--- NOTE | 2020-09-26 18:20 | NUR ---
ZIGZAG MACHINE OPERATOR NOTE BLE ULTRASOUND DONE ORDERED.
--- NOTE | 2020-09-26 19:00 | NUR ---
INSPECTOR PAPER PRODUCTS CLOSING NOTES PATIENT RECEIVED ALERT AND ORIENTED X 1-2 ON BED. PATIENT ON OXYGEN AT 4 LITERS PER MINUTE WITH NON LABORED AND EVEN/ REGULAR BREATHING, WITH NO SIGNS OF RESPIRATORY DISTRESS. PATIENT SATURATING AT 96%. PATIENT WITH IV ACCESS ON LEFT HAND G#20 AND LEFT AC G#18, BOTH ACCESS PATENT AND INTACT. PATIENT WITH WOUND ON THE RIGHT LOWER EXTREMITY COVERED WITH DRESSING, DRY AND INTACT, AWAITING WOUND CONSULT. SAFETY MEASURES ENSURED WITH SIDERAILS UP, BEDS LOCKED AND AT LOWEST POSITION. CALL LIGHT AND TABLE WITHIN REACH AT ALL TIMES. WILL ENDORSE PATIENT FOR CONTINUITY OF CARE.
[2020-09-26] MEDS: DULOXETINE HCL 30 MG CAPSULE.DR PO SCH (19:10)
[2020-09-26] MEDS: AZITHROMYCIN 500 MG in IV D5W 250 ML IV SCH (19:11)
--- NOTE | 2020-09-26 19:15 | NUR ---
INVESTIGATOR CLAIMS OPENING NOTES: RECEIVED PATIENT IN BED, AWAKE, A/O X2. NO S/S OF DISTRESS NOTED. ON O2 AT 4L/MIN NASAL CANNULA. HOB ELEVATED AT ALL TIMES. SON AT THE BEDSIDE. CALL LIGHT WITHION REACH. BED ALARM ON. BED IN LOWEST AND LOCKED POSITION. PATIENT AND THE SON AWARE OF THE SPUTUM COLLECTION, WILL REMIND THE PATIENT.
[2020-09-26 20:15] VITALS: BP 120/50
[2020-09-26] MEDS: ENOXAPARIN SODIUM 40 MG/0.4 ML DISP.SYRIN SQ SCH (22:00)
[2020-09-27 00:24] VITALS: BP 100/45
[2020-09-27 04:56] VITALS: BP 143/48
[2020-09-27] MEDS: IV NS 0.9% 1,000 ML IV PRN (05:26)
[2020-09-27] MEDS: MEROPENEM 1 G in IV NS 0.9% 100 ML IV SCH ×2 (05:26→16:48)
--- NOTE | 2020-09-27 06:00 | NUR ---
METAL FENCE ERECTOR CLOSING NOTES: PATIENT IN BED, ASLEEP, EASILY AWOKEN. A/O X2.NO S/S OF DISTRESS NOTED. CALL LIGHT WITHIN REACH. BED ALARM ON. BED IN LOWEST AND LOCKED POSITION. HEELS OFFLOADED. TURNED AND REPOSITIONED Q2 HOURS. HOB ELEVATED AT ALL TIMES. WITH O2 AT 4L/MIN. NASAL CANNULA. KEPT THE PATIENT DRY AND CLEAN DURING THE SHIFT. WOUND TREATMENTS DONE.
[2020-09-27 06:29] LABS: CALCIUM, SERUM 7.7 mg/dL (8.5-10.1); CREATININE 0.9 mg/dL (0.6-1.3); POTASSIUM 3.4 mmol/L (3.5-5.1)
--- NOTE | 2020-09-27 07:28 | NUR ---
TELE/RN OPENING NOTES RECEIVED PATIENT IN BED, AWAKE, A/O X2. NO S/S OF DISTRESS NOTED. ON O2 AT 4L/MIN NASAL CANNULA. HOB ELEVATED AT ALL TIMES. NO S/S OF DISTRESS NOTED AT THIS TIME. SAFETY PRECAUTIONS IN PLACED. CALL LIGHT WITHIN REACH. BED ALARM ON. BED IN LOWEST AND LOCKED POSITION. WILL CONTINUE TO MONITOR PATIENT.
[2020-09-27 07:44] LABS: BASOPHILS # (AUTO) 0.1 /CMM (0.0-0.2); BASOPHILS % (AUTO) 0.3 % (0.0-2.0); EOSINOPHILS % (AUTO) 0.6 % (0.0-6.0); HEMATOCRIT 30 % (33-45); LYMPHOCYTES # (AUTO) 1.1 /CMM (0.8-4.8); LYMPHOCYTES % (AUTO) 4.9 % (20.0-44.0); MEAN CORPUSCULAR HGB CONC 33 g/dl (31.0-36.0); MEAN CORPUSCULAR VOLUME 102 fL (82-100); MONOCYTES # (AUTO) 1.1 /CMM (0.1-1.30); NEUTROPHILS # (AUTO) 19.3 /CMM (1.8-8.9); NEUTROPHILS % (AUTO) 89.2 % (43.0-81.0); PLATELET COUNT (AUTO) 189 /CMM (150-450); RED BLOOD CELL COUNT(AUTO) 2.98 MIL/uL (4.0-5.2); WHITE BLOOD COUNT (AUTO) 21.7 K/uL (4.3-11.0)
[2020-09-27 08:00] VITALS: BP 136/70
[2020-09-27] MEDS: DULOXETINE HCL 30 MG CAPSULE.DR PO SCH ×2 (08:34→17:24)
[2020-09-27] MEDS: GABAPENTIN 300 MG CAPSULE PO SCH (08:34)
[2020-09-27] MEDS: HYDROCODONE/APAP 5/325MG TABLET PO PRN ×4 (08:35→17:24)
[2020-09-27] MEDS: LOSARTAN POTASSIUM 25 MG TABLET PO SCH (08:36)
[2020-09-27] MEDS: THERAHONEY GEL 1.5 OZ TUBE TP SCH (08:53)
[2020-09-27] MEDS ORDERED: POTASSIUM CHLORIDE 20 MEQ TAB.PRT.SR PO ONE (10:00)
[2020-09-27 16:00] VITALS: BP 118/59
[2020-09-27] MEDS: VANCOMYCIN 1.25 GM in IV D5W 250 ML IV SCH (17:32)
[2020-09-27] MEDS: AZITHROMYCIN 500 MG in IV D5W 250 ML IV SCH (18:43)
--- NOTE | 2020-09-27 19:00 | NUR ---
TELE/RN CLOSING NOTES PATIENT IN BED, AWAKE, A/O X2. NO S/S OF DISTRESS NOTED. ON O2 AT 4L/MIN NASAL CANNULA. HOB ELEVATED AT ALL TIMES. NO S/S OF DISTRESS NOTED AT THIS TIME. SAFETY PRECAUTIONS IN PLACED. CALL LIGHT WITHIN REACH. BED ALARM ON. BED IN LOWEST AND LOCKED POSITION. WILL ENDORSE TO THE NEXT SHIFT FOR CONTINUITY OF CARE.
--- NOTE | 2020-09-27 19:30 | NUR ---
ASSEMBLER FOR PULLER OVER MACHINE NOTES RECEIVED LYING COMFORTABLY ON BED,A/O X2,BREATHING NON LABORED,O2 IN USED AT 4L/NC,O2 SAT 98%.SON AT BEDSIDE.IV ABX INFUSING WELL ON LEFT AC SALINE LOCK VIA IV PUMP.DRESSING TO RIGHT LEG,RIGHT ANKLE WOUND INTACT AND DRY.WILL REPOSITION Q 2 HOURS PER PROTOCOL FOR SKIN MANAGEMENT.SR-75 ON TELE MONITOR.CALL LIGHT IN REACH,NEEDS ANTICIPATED.
[2020-09-27 20:00] VITALS: BP 106/50
[2020-09-27 20:09] VITALS: BP 106/50
[2020-09-27] MEDS: ENOXAPARIN SODIUM 40 MG/0.4 ML DISP.SYRIN SQ SCH (20:58)
--- NOTE | 2020-09-27 23:20 | NUR ---
RN NOTES PATIENT HAD EPISODE OF BRADYCARDIA, HR 48 BPM,PATIENT WAS PALE, VITAL SIGNS TAKEN FOLLOWS: BP 116/68, TEMP 98.6, O2 SATURATION 95%. PATIENT VERBALIZED FEELING SCARED. ELEVATED HOB, O2 AT4LPM.
--- NOTE | 2020-09-27 23:30 | NUR ---
RN NOTES REASSESSED PATIENT CONDITION, HR ON 60'S TO 70'S, NO OTHER SIGNS NOTED. BP 119/61, OXYGEN SATURATION AT 95%.
[2020-09-28] VITALS: BP 130/60
[2020-09-28] MEDS: MEROPENEM 1 G in IV NS 0.9% 100 ML IV SCH ×2 (03:26→15:49)
[2020-09-28 04:00] VITALS: BP 112/69
--- NOTE | 2020-09-28 06:21 | NUR ---
INSIDE PLANT SUPERVISOR CLOSING NOTES PATIENT IN BED, SLEEPING AT THIS TIME, EASILY AWAKEN BY VERBAL AND TACTILE STIMULI, HR ON 80'S ,A/O X2,BREATHING NON LABORED,O2 IN USED AT 4L/NC,O2 SAT 95%. NO ACUTE DISTRESS NOTED. NO SOB NOTED. DRESSING TO RIGHT LEG,RIGHT ANKLE WOUND INTACT AND DRY. IV ACCESS ON BARON ARM INTACT, PATENT AND FLUSHES WELL. NO COMPLAINTS OF PAIN AT THIS TIME. SAFETY PRECAUTIONS OBSERVED AND MAINTAINED DURING THE SHIFT: BED ON LOWEST LOCKED POSITION, SIDE RAILS UP X 2, KEPT CALL LIGHT WITHIN EASY REACH. DUE MEDS GIVEN ORDERED. ENDORSED TO MORNING SHIFT NURSE FOR CONTINUITY OF CARE.
--- NOTE | 2020-09-28 07:26 | NUR ---
TELE/RN OPENING NOTES RECEIVED PATIENT IN BED, ALERT AND ORIENTED X2, CITIZEN OF [place] SPEAKING ONLY. BREATHING NON LABORED,O2 IN USED VIA NASAL CANNULA. NO ACUTE DISTRESS NOTED. NO SOB NOTED. DRESSING TO RIGHT LEG,RIGHT ANKLE WOUND INTACT AND DRY. IV ACCESS ON BARON ARM INTACT, PATENT AND FLUSHES WELL. NO COMPLAINTS OF PAIN AT THIS TIME. SAFETY PRECAUTIONS IN PLACED. BED ON LOWEST LOCKED POSITION, SIDE RAILS UP X 2, CALL LIGHT WITHIN REACH. WILL CONTINUE TO MONITOR.
[2020-09-28 08:11] VITALS: BP 142/65
[2020-09-28] MEDS: LOSARTAN POTASSIUM 25 MG TABLET PO SCH (09:50)
[2020-09-28] MEDS: THERAHONEY GEL 1.5 OZ TUBE TP SCH (09:50)
[2020-09-28] MEDS: GABAPENTIN 300 MG CAPSULE PO SCH (09:50)
[2020-09-28] MEDS: DULOXETINE HCL 30 MG CAPSULE.DR PO SCH ×2 (09:50→17:11)
[2020-09-28] MEDS: VANCOMYCIN 1.25 GM in IV D5W 250 ML IV SCH (10:46)
[2020-09-28] MEDS: ONDANSETRON HCL/PF 4 MG/2 ML VIAL IVP PRN (11:34)
[2020-09-28 12:00] VITALS: BP 140/60
[2020-09-28] MEDS: HYDROCODONE/APAP 5/325MG TABLET PO PRN ×2 (14:08→18:40)
[2020-09-28 16:01] VITALS: BP 120/58
[2020-09-28] MEDS: ENSURE CLEAR 237 ML LIQUID (MIX BERRY) PO SCH (17:12)
[2020-09-28] MEDS: AZITHROMYCIN 500 MG in IV D5W 250 ML IV SCH (17:12)
[2020-09-28] MEDS ORDERED: POTASSIUM CHLORIDE 20 MEQ TAB.PRT.SR PO ONE (18:00)
--- NOTE | 2020-09-28 19:02 | NUR ---
TELE/RN CLOSING NOTES PATIENT IN BED, ALERT AND ORIENTED X2, [place]EL[place] SPEAKING ONLY. BREATHING NON LABORED,O2 IN USED VIA NASAL CANNULA AT 4 LPM. NO ACUTE DISTRESS NOTED. SON ILYA AT BEDSIDE. ON TELE MONITOR WITH READING OF SR 89. DRESSING TO RIGHT LEG,RIGHT ANKLE WOUND INTACT AND DRY. IV ACCESS ON BARON ARM PATENT AND INTACT ON SALINE LOCK. NO COMPLAINTS OF PAIN AT THIS TIME. SAFETY PRECAUTIONS IN PLACED. BED ON LOWEST LOCKED POSITION, SIDE RAILS UP X 2, CALL LIGHT WITHIN REACH. WILL ENDORSE TO THE NEXT SHIFT FOR CONTINUITY OF CARE
--- NOTE | 2020-09-28 19:28 | NUR ---
BREAD SLICER MACHINE NOTES PATIENT RECEIVED IN BED, ALERT AND ORIENTED X2, [place] SPEAKING ONLY. BREATHING NON LABORED,O2 IN USED VIA NASAL CANNULA AT 4 LPM. NO ACUTE DISTRESS NOTED. SON ILYA AT BEDSIDE. ON TELE MONITOR WITH READING OF SR 89. DRESSING TO RIGHT LEG,RIGHT ANKLE WOUND INTACT AND DRY. IV ACCESS ON BARON ARM PATENT AND INTACT ON SALINE LOCK. NO COMPLAINTS OF PAIN AT THIS TIME. SAFETY PRECAUTIONS IN PLACED. BED ON LOWEST LOCKED POSITION, SIDE RAILS UP X 2, CALL LIGHT WITHIN REACH. WILL CONTINUE TO MONITOR.
[2020-09-28 19:50] LABS: CALCIUM, SERUM 8.1 mg/dL (8.5-10.1); CREATININE 0.8 mg/dL (0.6-1.3); MAGNESIUM 2.3 mg/dL (1.8-2.4); PHOSPHORUS 2.1 mg/dL (2.5-4.9); POTASSIUM 3.5 mmol/L (3.5-5.1)
[2020-09-28 20:00] VITALS: BP 128/60
[2020-09-28 20:05] LABS: BASOPHILS % (AUTO) 0.2 % (0.0-2.0); EOSINOPHILS % (AUTO) 1.7 % (0.0-6.0); HEMATOCRIT 30 % (33-45); HEMOGLOBIN 10.2 g/dL (11.5-14.8); LYMPHOCYTES # (AUTO) 1.5 /CMM (0.8-4.8); LYMPHOCYTES % (AUTO) 11.5 % (20.0-44.0); MEAN CORPUSCULAR HGB CONC 33 g/dl (31.0-36.0); MEAN CORPUSCULAR VOLUME 101 fL (82-100); MONOCYTES # (AUTO) 1.2 /CMM (0.1-1.30); MONOCYTES % (AUTO) 9.4 % (2.0-12.0); NEUTROPHILS # (AUTO) 10.1 /CMM (1.8-8.9); NEUTROPHILS % (AUTO) 77.2 % (43.0-81.0); PLATELET COUNT (AUTO) 211 /CMM (150-450); RED BLOOD CELL COUNT(AUTO) 3.02 MIL/uL (4.0-5.2); WHITE BLOOD COUNT (AUTO) 13.1 K/uL (4.3-11.0)
[2020-09-28] MEDS: ENOXAPARIN SODIUM 40 MG/0.4 ML DISP.SYRIN SQ SCH (21:00)
[2020-09-29] MEDS: MEROPENEM 1 G in IV NS 0.9% 100 ML IV SCH (03:16)
[2020-09-29 04:00] VITALS: BP 136/69
[2020-09-29] MEDS: HYDROCODONE/APAP 5/325MG TABLET PO PRN (04:32)
[2020-09-29 04:34] LABS: BASOPHILS # (AUTO) 0.1 /CMM (0.0-0.2); BASOPHILS % (AUTO) 0.5 % (0.0-2.0); EOSINOPHILS % (AUTO) 2.5 % (0.0-6.0); HEMATOCRIT 30 % (33-45); HEMOGLOBIN 9.9 g/dL (11.5-14.8); LYMPHOCYTES # (AUTO) 1.3 /CMM (0.8-4.8); LYMPHOCYTES % (AUTO) 12.2 % (20.0-44.0); MEAN CORPUSCULAR HGB CONC 33 g/dl (31.0-36.0); MEAN CORPUSCULAR VOLUME 101 fL (82-100); MONOCYTES # (AUTO) 1.1 /CMM (0.1-1.30); MONOCYTES % (AUTO) 10.5 % (2.0-12.0); NEUTROPHILS # (AUTO) 8.1 /CMM (1.8-8.9); NEUTROPHILS % (AUTO) 74.3 % (43.0-81.0); PLATELET COUNT (AUTO) 207 /CMM (150-450); RED BLOOD CELL COUNT(AUTO) 2.94 MIL/uL (4.0-5.2); WHITE BLOOD COUNT (AUTO) 10.9 K/uL (4.3-11.0)
[2020-09-29 05:01] LABS: CALCIUM, SERUM 8.1 mg/dL (8.5-10.1); POTASSIUM 3.8 mmol/L (3.5-5.1)
[2020-09-29] MEDS: VANCOMYCIN 1.25 GM in IV D5W 250 ML IV SCH ×2 (05:20→23:26)
--- NOTE | 2020-09-29 06:31 | NUR ---
TRADING SPECIALIST NOTES PATIENT IN BED, ALERT AND ORIENTED X2, [place]ORE[place] SPEAKING ONLY. BREATHING NON LABORED,O2 IN USED VIA NASAL CANNULA AT 4 LPM. NO ACUTE DISTRESS NOTED. ON TELE MONITOR WITH READING OF SR. DRESSING TO RIGHT LEG,RIGHT ANKLE WOUND INTACT AND DRY. IV ACCESS ON BARON ARM PATENT AND INTACT ON SALINE LOCK. NO COMPLAINTS OF PAIN AT THIS TIME. NORCO PROVIDED FOR PAIN MANAGEMENT. PT REPOSITIONED FOR COMFORT PRN SAFETY PRECAUTIONS IN PLACED. BED ON LOWEST LOCKED POSITION, SIDE RAILS UP X 2, CALL LIGHT WITHIN REACH. WILL ENDORSE CARE TO DAY SHIFT NURSE.
[2020-09-29] MEDS: ENSURE CLEAR 237 ML LIQUID (MIX BERRY) PO SCH ×3 (08:00→17:23)
--- NOTE | 2020-09-29 08:00 | NUR ---
RN OPENING NOTE RECEIVED PATIENT IN BED, AO X 2, ABLE TO RESPONDS ALL STIMULI. NO S/S OF DISTRESS OBSERVED. SKIN IS WARM TO TOUCH KEEP CLEAN/DRY, INTACT IV SITE. RESPIRATORY EVEN AND UNLABORED WITH OXYGEN AT 4LPM, NO DISTRESS OBSERVED. KEPT ELEVATED HOB FOR ENSURE AIRWAY AND ASPIRATION PRECAUTION, ALSO LOWEST BED POSITION FOR SAFETY. CALL LIGHT WITHIN REACH, WILL CONTINUE TO MONITOR.
[2020-09-29 08:07] VITALS: BP 130/57
[2020-09-29] MEDS: DULOXETINE HCL 30 MG CAPSULE.DR PO SCH ×2 (09:10→17:11)
[2020-09-29] MEDS: GABAPENTIN 300 MG CAPSULE PO SCH (09:10)
[2020-09-29] MEDS: LOSARTAN POTASSIUM 25 MG TABLET PO SCH (09:10)
[2020-09-29] MEDS: THERAHONEY GEL 1.5 OZ TUBE TP SCH (09:16)
[2020-09-29 16:06] VITALS: BP 130/55
[2020-09-29] MEDS: AZITHROMYCIN 500 MG in IV D5W 250 ML IV SCH (17:11)
--- NOTE | 2020-09-29 18:30 | NUR ---
RN CLOSING NOTE PATIENT IN BED, NO S/S OF DISTRESS OBSERVED. SKIN IS WARM TO TOUCH,KEEP CLEAN/DRY WOUND DRESSING CHANGE PROVIDED. RESPIRATORY EVEN AND UNLABORED WITH OXYGEN AT 4LPM VIA NC. KEPT ELEVATED HOB FOR ENSURE AIRWAY AND ASPIRATION PRECAUTION, ALSO LOWEST BED POSITION FOR SAFETY. CALL LIGHT WITHIN REACH, WILL ENDORSE CUSTOMER RESOLUTION SPECIALIST.
--- NOTE | 2020-09-29 19:39 | NUR ---
FACTORY MACHINE COMPUTER OPERATOR NOTES PATIENT IN BED, ALERT AND ORIENTED X2, TURKISH SPEAKING ONLY. BREATHING NON LABORED,O2 IN USED VIA NASAL CANNULA AT 4 LPM. NO ACUTE DISTRESS NOTED. ON TELE MONITOR WITH READING OF SR. DRESSING TO RIGHT LEG,RIGHT ANKLE WOUND INTACT AND DRY. IV ACCESS ON BARON ARM PATENT AND INTACT ON SALINE LOCK. NO COMPLAINTS OF PAIN AT THIS TIME. PT REPOSITIONED FOR COMFORT PRN SAFETY PRECAUTIONS IN PLACED. BED ON LOWEST LOCKED POSITION, SIDE RAILS UP X 2, CALL LIGHT WITHIN REACH. WILL CONTINUE TO MONITOR.
[2020-09-29 20:00] VITALS: BP 113/58
[2020-09-29] MEDS: ENOXAPARIN SODIUM 40 MG/0.4 ML DISP.SYRIN SQ SCH (21:35)
[2020-09-30 00:03] VITALS: BP 144/65
[2020-09-30] MEDS: HYDROCODONE/APAP 5/325MG TABLET PO PRN ×3 (00:56→23:38)
[2020-09-30 05:40] VITALS: BP 148/62
--- NOTE | 2020-09-30 06:39 | NUR ---
OPTICAL MECHANIC APPRENTICE NOTES PATIENT IN BED, ALERT AND ORIENTED X2, THAI SPEAKING ONLY. BREATHING NON LABORED,O2 IN USED VIA NASAL CANNULA AT 4 LPM. NO ACUTE DISTRESS NOTED. ON TELE MONITOR WITH READING OF SR. DRESSING TO RIGHT LEG,RIGHT ANKLE WOUND INTACT AND DRY. IV ACCESS ON BARON ARM PATENT AND INTACT ON SALINE LOCK. NO COMPLAINTS OF PAIN AT THIS TIME. ALL DUE MEDS GIVEN AND TOLERATED WELL. PAIN MEDICATION PROVIDED THROUGHOUT THE SHIFT PRN .PT REPOSITIONED FOR COMFORT PRN SAFETY PRECAUTIONS IN PLACED. BED ON LOWEST LOCKED POSITION, SIDE RAILS UP X 2, CALL LIGHT WITHIN REACH. WILL ENDORSE TO DAY SHIFT NURSE.
--- NOTE | 2020-09-30 07:28 | NUR ---
PEDIATRIC ALLERGIST NOTES UNABLE TO COLLECT URINE PER SON LILY DOES NOT WANT STRAIGHT CATH TO BE ATTEMPTED. NO SPUTUM COLLECTED PT DID NOT HAVE ANY SPUTUM DURING HEAVY EQUIPMENT SALES MANAGER. WILL ENDORSE TO DAY SHIFT NURSE.
[2020-09-30 07:34] LABS: BASOPHILS % (AUTO) 0.5 % (0.0-2.0); EOSINOPHILS % (AUTO) 1.5 % (0.0-6.0); HEMATOCRIT 29 % (33-45); HEMOGLOBIN 9.8 g/dL (11.5-14.8); LYMPHOCYTES # (AUTO) 1.5 /CMM (0.8-4.8); LYMPHOCYTES % (AUTO) 15.3 % (20.0-44.0); MEAN CORPUSCULAR HGB CONC 34 g/dl (31.0-36.0); MEAN CORPUSCULAR VOLUME 100 fL (82-100); MONOCYTES # (AUTO) 1.4 /CMM (0.1-1.30); MONOCYTES % (AUTO) 14.7 % (2.0-12.0); NEUTROPHILS # (AUTO) 6.5 /CMM (1.8-8.9); PLATELET COUNT (AUTO) 214 /CMM (150-450); RED BLOOD CELL COUNT(AUTO) 2.86 MIL/uL (4.0-5.2); WHITE BLOOD COUNT (AUTO) 9.6 K/uL (4.3-11.0)
--- NOTE | 2020-09-30 07:54 | NUR ---
RN OPENING NOTE RECEIVED PATIENT IN BED, AO X 2-3, NO S/S OF DISTRESS OBSERVED. ABLE TO RESPONDS ALL STIMULI. SKIN IS WARM TO TOUCH KEEP CLEAN/DRY, INTACT IV SITE. RESPIRATORY EVEN AND UNLABORED WITH OXYGEN AT 4LPM, NO DISTRESS OBSERVED. KEPT ELEVATED HOB FOR ENSURE AIRWAY AND ASPIRATION PRECAUTION, ALSO LOWEST BED POSITION FOR SAFETY. CALL LIGHT WITHIN REACH, WILL CONTINUE TO MONITOR.
[2020-09-30 08:18] LABS: CALCIUM, SERUM 7.9 mg/dL (8.5-10.1); MAGNESIUM 2.4 mg/dL (1.8-2.4); PHOSPHORUS 3.7 mg/dL (2.5-4.9); POTASSIUM 3.7 mmol/L (3.5-5.1)
[2020-09-30 08:34] VITALS: BP 124/64
[2020-09-30] MEDS: GABAPENTIN 300 MG CAPSULE PO SCH (09:00)
[2020-09-30] MEDS: LOSARTAN POTASSIUM 25 MG TABLET PO SCH (09:00)
[2020-09-30] MEDS: DULOXETINE HCL 30 MG CAPSULE.DR PO SCH ×2 (09:00→16:27)
[2020-09-30] MEDS: ENSURE CLEAR 237 ML LIQUID (MIX BERRY) PO SCH ×3 (09:03→16:28)
[2020-09-30] MEDS: THERAHONEY GEL 1.5 OZ TUBE TP SCH (09:04)
--- NOTE | 2020-09-30 09:06 | NUR ---
PATIENT C/O DIZZINESS, WILL HOLD BP MEDICATION. BP-124/64, P-69, PATIENT TAKES CYMBALTA.
--- NOTE | 2020-09-30 10:17 | NUR ---
PATIENT RECEIVED REGULAR DIET ORDER FROM CLEAR LIQUID DIET, NOTED AND CARRY OUT.
[2020-09-30] MEDS ORDERED: SULF-11 PO (10:26)
[2020-09-30 12:00] VITALS: BP 137/57
[2020-09-30 16:14] VITALS: BP 138/62
[2020-09-30] MEDS: VANCOMYCIN 1.25 GM in IV D5W 250 ML IV SCH (16:57)
--- NOTE | 2020-09-30 17:34 | NUR ---
RN CLOSING NOTE PATIENT IN BED, NO S/S OF DISTRESS OBSERVED. SKIN IS WARM TO TOUCH,KEEP CLEAN/DRY NOTICED IV INFILTRATE ON LEFT HAND AND REINSERTED ON RIGHT HAND 24G. ALSO WOUND DRESSING CHANGE PROVIDED. RESPIRATORY EVEN AND UNLABORED WITH OXYGEN AT 4LPM VIA NC. KEPT ELEVATED HOB FOR ENSURE AIRWAY AND ASPIRATION PRECAUTION, ALSO LOWEST BED POSITION FOR SAFETY. CALL LIGHT WITHIN REACH, WILL ENDORSE NUCLEAR MEDICINE TECH.
[2020-09-30] MEDS: AZITHROMYCIN 500 MG in IV D5W 250 ML IV SCH (18:07)
[2020-09-30 20:00] VITALS: BP 146/54
--- NOTE | 2020-09-30 20:18 | NUR ---
PERINATAL NURSE NOTES PATIENT IN BED, ALERT AND ORIENTED X2, [place] SPEAKING ONLY. BREATHING NON LABORED,O2 IN USED VIA NASAL CANNULA AT 4 LPM. NO ACUTE DISTRESS NOTED. ON TELE MONITOR WITH READING OF SR. DRESSING TO RIGHT LEG,RIGHT ANKLE WOUND INTACT AND DRY. IV ACCESS ON BARON ARM PATENT AND INTACT ON SALINE LOCK. NO COMPLAINTS OF PAIN AT THIS TIME .PT REPOSITIONED FOR COMFORT PRN SAFETY PRECAUTIONS IN PLACED. BED ON LOWEST LOCKED POSITION, SIDE RAILS UP X 2, CALL LIGHT WITHIN REACH. WILL CONTINUE TO MONITOR.
[2020-09-30] MEDS: ENOXAPARIN SODIUM 40 MG/0.4 ML DISP.SYRIN SQ SCH (21:19)
[2020-10-01] VITALS: BP 136/65
[2020-10-01 04:00] VITALS: BP 113/46
[2020-10-01 06:33] LABS: CALCIUM, SERUM 8.3 mg/dL (8.5-10.1); CREATININE 0.9 mg/dL (0.6-1.3); POTASSIUM 3.7 mmol/L (3.5-5.1)
--- NOTE | 2020-10-01 07:50 | NUR ---
LEAD OXIDE MILL TENDER OPENING NOTES RECEIVED PATIENT IN BED, ALERT AND ORIENTED X 2-3, [place] SPEAKING. NO SIGNS OR SYMPTOMS OF DISTRESS NOTED. BREATHING IS EVEN AND UNLABORED WITH OXYGEN RUNNING AT 4L NC. HOB ELEVATED. TELE MONITOR WITH SINUS RHYTHM. SAFETY MEASURES IN PLACE WITH BED LOCKED IN LOWEST POSITION, SIDE RAILS UP X 2. CALL LIGHT IS WITHIN REACH. WILL CONTINUE TO MONITOR THROUGHOUT SHIFT.
[2020-10-01 08:18] VITALS: BP 125/58
[2020-10-01] MEDS: GABAPENTIN 300 MG CAPSULE PO SCH (08:55)
[2020-10-01] MEDS: ENSURE CLEAR 237 ML LIQUID (MIX BERRY) PO SCH (08:55)
[2020-10-01] MEDS: DULOXETINE HCL 30 MG CAPSULE.DR PO SCH ×2 (08:55→16:17)
[2020-10-01] MEDS: LOSARTAN POTASSIUM 25 MG TABLET PO SCH (08:56)
[2020-10-01] MEDS: THERAHONEY GEL 1.5 OZ TUBE TP SCH (08:57)
[2020-10-01] MEDS: ENSURE ENLIVE 237 ML LIQUID (VANILLA) PO SCH ×3 (10:46→17:23)
[2020-10-01] MEDS: ONDANSETRON HCL/PF 4 MG/2 ML VIAL IVP PRN (11:00)
--- NOTE | 2020-10-01 11:03 | NUR ---
ASSISTANT MANAGER QUALITY MANAGEMENT NOTES VANCOMYCIN @1100 HELD DUE TO TROUGH LEVEL >20
[2020-10-01 12:09] VITALS: BP_SYST 118; BP_SYST 137; BP_DIAS 55; BP_DIAS 60
--- NOTE | 2020-10-01 18:53 | NUR ---
CORPORATE PHYSICAL SECURITY SUPERVISOR CLOSING NOTES PATIENT IN BED, ALERT AND ORIENTED X 3, PORTUGUESE SPEAKING. SON, ILYA, AT BEDSIDE. NO SIGNS OR SYMPTOMS OF DISTRESS NOTED. C/O OF PAIN 3/10 ON RIGHT LEG AND FOOT BUT REFUSED PAIN MEDICATION. BREATHING IS EVEN AND UNLABORED WITH OXYGEN RUNNING AT 4L NC. HOB ELEVATED. PATIENT WITH EXTERNAL MONITOR WITH SINUS RHYTHM 77. SAFETY MEASURES IN PLACE WITH BED LOCKED IN LOWEST POSITION, SIDE RAILS UP X 2. CALL LIGHT IS WITHIN REACH. WILL ENDORSE CONTINUITY OF CARE TO NEXT SHIFT.
--- NOTE | 2020-10-01 19:40 | NUR ---
MSRN RECEIVED FULLY AWAKE, SON AT BEDSIDE. VERY SUPPORTIVE. ALL NEEDS ATTENDED. STABLE. SOB ON MINIMAL EXERTION. 02 AT 4 L VIA NC MAINTAINED. TO CONTINUE
[2020-10-01 20:00] VITALS: BP 126/57
[2020-10-01] MEDS: VANCOMYCIN 1.25 GM in IV D5W 250 ML IV SCH (21:28)
[2020-10-01] MEDS: ENOXAPARIN SODIUM 40 MG/0.4 ML DISP.SYRIN SQ SCH (21:32)
[2020-10-01] MEDS: HYDROCODONE/APAP 5/325MG TABLET PO PRN (23:35)
--- NOTE | 2020-10-01 23:35 | NUR ---
TELERN PER SON PATIENT WITH RIGHT ARM AND LEG PAIN. MEDICATED WITH NORCO I TAB ORDERED. COMPLETE BEDREST
[2020-10-02] VITALS: BP 126/81
--- NOTE | 2020-10-02 02:05 | NUR ---
MSRN ASLEEP OF THIS TIME. APPEARS COMFORTABLE. CLOSELY WATCHED.
[2020-10-02 04:00] VITALS: BP 121/51
[2020-10-02 05:59] LABS: BASOPHILS # (AUTO) 0.1 /CMM (0.0-0.2); BASOPHILS % (AUTO) 0.6 % (0.0-2.0); EOSINOPHILS % (AUTO) 2.9 % (0.0-6.0); HEMATOCRIT 31 % (33-45); HEMOGLOBIN 10.3 g/dL (11.5-14.8); LYMPHOCYTES # (AUTO) 1.8 /CMM (0.8-4.8); LYMPHOCYTES % (AUTO) 17.9 % (20.0-44.0); MEAN CORPUSCULAR HGB CONC 34 g/dl (31.0-36.0); MEAN CORPUSCULAR VOLUME 100 fL (82-100); MONOCYTES % (AUTO) 10.4 % (2.0-12.0); NEUTROPHILS # (AUTO) 6.8 /CMM (1.8-8.9); NEUTROPHILS % (AUTO) 68.2 % (43.0-81.0); PLATELET COUNT (AUTO) 289 /CMM (150-450); RED BLOOD CELL COUNT(AUTO) 3.06 MIL/uL (4.0-5.2); WHITE BLOOD COUNT (AUTO) 9.9 K/uL (4.3-11.0)
[2020-10-02 06:50] LABS: CALCIUM, SERUM 8.3 mg/dL (8.5-10.1); POTASSIUM 3.5 mmol/L (3.5-5.1)
--- NOTE | 2020-10-02 06:50 | NUR ---
TELERN NO COMPLAINTS MADE. STABLE. CONTINUED MONITORING
--- NOTE | 2020-10-02 07:30 | NUR ---
BLIND INSTALLER NOTES PT IN BED, AWAKE, ALERT AND VERBALLY RESPONSIVE, EATING BREAKFAST, DENIES PAIN, NOT IN DISTRESS, CALL LIGHT WITHIN REACH, NEEDS ATTENDED.
[2020-10-02 08:00] VITALS: BP 138/58
[2020-10-02] MEDS: LOSARTAN POTASSIUM 25 MG TABLET PO SCH (08:21)
[2020-10-02] MEDS: GABAPENTIN 300 MG CAPSULE PO SCH (08:21)
[2020-10-02] MEDS: DULOXETINE HCL 30 MG CAPSULE.DR PO SCH ×2 (08:21→18:10)
[2020-10-02] MEDS: THERAHONEY GEL 1.5 OZ TUBE TP SCH (08:24)
[2020-10-02] MEDS: ENSURE ENLIVE 237 ML LIQUID (VANILLA) PO SCH ×3 (08:26→18:02)
[2020-10-02 12:00] VITALS: BP 132/69
[2020-10-02] MEDS ORDERED: FUROSEMIDE 20 MG/2 ML VIAL IV ONE (12:30)
[2020-10-02] MEDS: ACETAMINOPHEN 325 MG TABLET PO PRN (12:57)
--- NOTE | 2020-10-02 13:06 | NUR ---
RESIDENT CARE TECHNICIAN NOTES PT IN BED, AWAKE, ALERT AND VERBALLY RESPONSIVE, TYLENOL GIVEN FOR SHOULDER PAIN, SEEN BY LEAH OSBORN, PLAN OF CARE DISCUSSED WITH PT AND SON AT BEDSIDE, ORDERS RECEIVED, NOTED AND CARRIED OUT, VITALS WNL.
[2020-10-02 16:00] VITALS: BP 130/54
--- NOTE | 2020-10-02 18:14 | NUR ---
CRUISE DIRECTOR NOTES PT IN BED, AWAKE, ALERT AND ORIENTED, NO COMPLAINT OF PAIN, ON O2 AT 3LPM VIA N/C, O2 SAT OF 97%, SEEN BY DR. PATIÑO, SON AT BEDSIDE, INFORMED OF PLAN OF CARE, ASSISTED WITH MEALS, PM MEDS GIVEN ORDERED, ALL NEEDS ATTENDED.
[2020-10-02] MEDS: MAGNESIUM HYDROXIDE 30 ML UDC PO PRN (19:14)
--- NOTE | 2020-10-02 19:45 | NUR ---
SKY CAP OPENING NOTE PATIENT A/O2; TURKS AND [place] ISLANDER SPEAKING. ON O2 3LPH VIA N/C; TOLERATING WELL WITH NO SOB. EXTERNAL LAUNDRY TECHNICIAN READS NSR AT 87; DENIES PAIN OR DISCOMFORT AT THIS TIME. NO S/SX OF PAIN OR DISCOMFORT AT THIS TIME. R HAND #24G; PATENT AND INTACT. FAMILY AT BEDSIDE. SAFETY MEASURES IN PLACE: BED TO LOWEST LOCKED POSITION, SIDE RAILS UPX2; CALL LIGHT WITHIN EASY REACH, BED ALARMS ON. PATIENT IN STABLE CONDITION; WILL CONTINUE PLAN OF CARE.
[2020-10-02 20:47] VITALS: BP 137/71
[2020-10-02] MEDS: VANCOMYCIN 1.25 GM in IV D5W 250 ML IV SCH (22:06)
[2020-10-02] MEDS: ENOXAPARIN SODIUM 40 MG/0.4 ML DISP.SYRIN SQ SCH (22:09)
[2020-10-03 00:02] VITALS: BP 136/60
[2020-10-03 05:55] LABS: BASOPHILS # (AUTO) 0.1 /CMM (0.0-0.2); BASOPHILS % (AUTO) 0.6 % (0.0-2.0); HEMATOCRIT 31 % (33-45); HEMOGLOBIN 10.4 g/dL (11.5-14.8); LYMPHOCYTES # (AUTO) 1.5 /CMM (0.8-4.8); LYMPHOCYTES % (AUTO) 10.6 % (20.0-44.0); MEAN CORPUSCULAR HGB CONC 34 g/dl (31.0-36.0); MEAN CORPUSCULAR VOLUME 99 fL (82-100); MONOCYTES # (AUTO) 1.2 /CMM (0.1-1.30); MONOCYTES % (AUTO) 8.6 % (2.0-12.0); NEUTROPHILS % (AUTO) 79.2 % (43.0-81.0); PLATELET COUNT (AUTO) 328 /CMM (150-450); RED BLOOD CELL COUNT(AUTO) 3.11 MIL/uL (4.0-5.2); WHITE BLOOD COUNT (AUTO) 13.8 K/uL (4.3-11.0)
[2020-10-03 06:13] VITALS: BP 140/56
[2020-10-03 06:45] LABS: CALCIUM, SERUM 8.3 mg/dL (8.5-10.1); CREATININE 1.2 mg/dL (0.6-1.3); MAGNESIUM 2.6 mg/dL (1.8-2.4); POTASSIUM 3.9 mmol/L (3.5-5.1)
[2020-10-03] MEDS: ACETAMINOPHEN 325 MG TABLET PO PRN (06:50)
--- NOTE | 2020-10-03 07:30 | NUR ---
ACTUARIAL DIRECTOR NOTES PT IN BED, ASLEEP, EASILY AROUSABLE BY VERBAL STIMULI, NOT IN DISTRESS, CALL LIGHT WITHIN REACH, KEPT WARM AND COMFORTABLE IN BED.
--- NOTE | 2020-10-03 07:30 | NUR ---
NURSE LICENSED PRACTICAL OPENING NOTES: PATIENT AWAKE IN BED, BED IN LOW POSITION , NO SOB NOTED,NO COMPLAIN OF PAIN AND DISCOMFORT, ON TELE MONITORING WITH READING OF SR WITH HR -86 ALL NEEDS MET KEPT CLEAN AND ENDORSE TO INCOMING SHIFT.
[2020-10-03 08:00] VITALS: BP 150/73
[2020-10-03] MEDS: LOSARTAN POTASSIUM 25 MG TABLET PO SCH (08:36)
[2020-10-03] MEDS: DULOXETINE HCL 30 MG CAPSULE.DR PO SCH ×2 (08:36→16:24)
[2020-10-03] MEDS: FUROSEMIDE 20 MG/2 ML VIAL IV SCH (08:36)
[2020-10-03] MEDS: ENSURE ENLIVE 237 ML LIQUID (VANILLA) PO SCH ×3 (08:36→16:57)
[2020-10-03] MEDS: GABAPENTIN 300 MG CAPSULE PO SCH (08:36)
[2020-10-03] MEDS: THERAHONEY GEL 1.5 OZ TUBE TP SCH (08:37)
[2020-10-03] MEDS ORDERED: FUROSEMIDE 20 MG TABLET PO SCH (09:00)
--- NOTE | 2020-10-03 14:00 | NUR ---
LIME BOILER NOTES PT IN BED, ASLEEP, EASY TO AROUSE, ALERT AND VERBALLY RESPONSIVE, SEEN BY DR. BORJA, ORDERS GIVEN, NOTED AND CARRIED OUT, WOUND TREATMENT AND DRESSING CHANGE DONE AT RIGHT LEG, TOLERATED WELL.
[2020-10-03 16:00] VITALS: BP 146/60
[2020-10-03] MEDS ORDERED: POLYETHYLENE GLYCOL 3350 17 GM POWD.PACK PO PRN (16:30)
--- NOTE | 2020-10-03 18:25 | NUR ---
KINESIOLOGY INTERNSHIP NOTES PT IN BED, RESTING, NO COMPLAINT OF PAIN, NOT IN DISTRESS, TITRATED O2 TO 2LPM VIA N/C, WITH O2 SAT OF 94%, WITH COMPLAINT OF CONSTIPATION, MD INFORMED, ORDERED MIRALAX PRN, MED GIVEN ORDERED, PM MEDS GIVEN, PM CARE RENDERED.
[2020-10-03 20:00] VITALS: BP 98/58
--- NOTE | 2020-10-03 20:00 | NUR ---
MATTRESS STUFFER OPENING NOTES PATIENT RESTING IN BED, ALERT/ORIENTED X 2, PT IS SYRI[place] SPEAKING, NO COMPLAINTS OF PAIN AT THIS TIME. PATIENT ON 2L OF OXYGEN VIA NASAL CANNULA, NO S/S OF DISTRESS OR SHORTNESS OF BREATH NOTED. PATIENT ON TELE, SR WITH OCCASIONAL PVC'S, HR 78. LEFT HAND IV ACCESS INTACT AND SALINE LOCKED. SAFETY MEASURES IN PLACE, CALL LIGHT AND TABLE WITHIN REACH, BED LOCKED IN LOWEST POSITION, BED ALARM ON, WILL CONTINUE TO MONITOR
[2020-10-03] MEDS: VANCOMYCIN 1.25 GM in IV D5W 250 ML IV SCH (21:00)
[2020-10-03] MEDS: MAGNESIUM HYDROXIDE 30 ML UDC PO PRN (21:05)
--- NOTE | 2020-10-03 21:05 | NUR ---
DIGITAL ASSOCIATE NOTES PATIENT REPORTING CONSTIPATION AND NO BM FOR SEVERAL DAYS. MILK OF MAG GIVEN ORDERED. WILL CONTINUE TO MONITOR
[2020-10-03] MEDS: ENOXAPARIN SODIUM 40 MG/0.4 ML DISP.SYRIN SQ SCH (21:06)
--- NOTE | 2020-10-03 21:36 | NUR ---
CAMOUFLAGE ASSEMBLER NOTES VANCO TROUGH = 25. HELD VANCO MEDICATION PER ORDER. WILL CONTINUE TO MONITOR
[2020-10-04] VITALS: BP 120/51
[2020-10-04] MEDS: ACETAMINOPHEN 325 MG TABLET PO PRN (03:14)
--- NOTE | 2020-10-04 03:15 | NUR ---
CORPORATE AUDITOR NOTES PATIENT REPORTING MILD PAIN, TYLENOL 650 MG GIVEN ORDERED. WILL CONTINUE TO MONITOR
[2020-10-04 04:00] VITALS: BP 130/54
[2020-10-04 05:57] LABS: BASOPHILS # (AUTO) 0.1 K/uL (0.0-0.2); BASOPHILS % (AUTO) 0.5 % (0.0-2.0); EOSINOPHILS % (AUTO) 0.8 % (0.0-6.0); HEMATOCRIT 32 % (33-45); HEMOGLOBIN 10.6 g/dL (11.5-14.8); LYMPHOCYTES # (AUTO) 1.7 K/uL (0.8-4.8); LYMPHOCYTES % (AUTO) 10.5 % (20.0-44.0); MEAN CORPUSCULAR HGB CONC 33 g/dl (31.0-36.0); MEAN CORPUSCULAR VOLUME 99 fL (82-100); MONOCYTES # (AUTO) 1.2 K/uL (0.1-1.30); MONOCYTES % (AUTO) 7.5 % (2.0-12.0); NEUTROPHILS % (AUTO) 80.7 % (43.0-81.0); PLATELET COUNT (AUTO) 346 K/uL (150-450); WHITE BLOOD COUNT (AUTO) 16.1 K/uL (4.3-11.0)
--- NOTE | 2020-10-04 07:00 | NUR ---
REACHER CLOSING NOTES PATIENT SLEEPING IN BED, EASILY AWAKENED, ALERT/ORIENTED X 2, PT IS HONDURAN SPEAKING, NO COMPLAINTS OF PAIN AT THIS TIME. PATIENT ON 2L OF OXYGEN VIA NASAL CANNULA, NO S/S OF DISTRESS OR SHORTNESS OF BREATH NOTED. PATIENT ON TELE, SR WITH OCCASIONAL PVC'S AND PAC'S. LEFT HAND IV ACCESS INTACT AND SALINE LOCKED. PATIENT DID NOT HAVE A BOWEL MOVEMENT. MEDICATIONS GIVEN ORDERED AND NEEDS MET THROUGHOUT SHIFT. SAFETY MEASURES IN PLACE, CALL LIGHT AND TABLE WITHIN REACH, BED LOCKED IN LOWEST POSITION, BED ALARM ON, WILL ENDORSE TO DAY SHIFT NURSE FOR CONTINUITY OF CARE
[2020-10-04 07:15] LABS: CALCIUM, SERUM 8.4 mg/dL (8.5-10.1); CREATININE 1.3 mg/dL (0.6-1.3); POTASSIUM 3.9 mmol/L (3.5-5.1)
--- NOTE | 2020-10-04 07:44 | NUR ---
RN OPENING NOTE RECEIVED PATIENT IN BED, AO X 2-3, NO S/S OF DISTRESS OBSERVED. ABLE TO RESPONDS ALL STIMULI. SKIN IS WARM TO TOUCH KEEP CLEAN/DRY, INTACT IV SITE. RESPIRATORY EVEN AND UNLABORED WITH OXYGEN AT 2LPM, NO DISTRESS OBSERVED. KEPT ELEVATED HOB FOR ENSURE AIRWAY AND ASPIRATION PRECAUTION, ALSO LOWEST BED POSITION FOR SAFETY. CALL LIGHT WITHIN REACH, WILL CONTINUE TO MONITOR.
[2020-10-04 08:00] VITALS: BP 146/57
[2020-10-04] MEDS: LOSARTAN POTASSIUM 25 MG TABLET PO SCH ×2 (09:00→16:11)
[2020-10-04] MEDS: GABAPENTIN 300 MG CAPSULE PO SCH (09:04)
[2020-10-04] MEDS: FUROSEMIDE 20 MG/2 ML VIAL IV SCH (09:04)
[2020-10-04] MEDS: DULOXETINE HCL 30 MG CAPSULE.DR PO SCH ×2 (09:04→16:08)
[2020-10-04] MEDS: ENSURE ENLIVE 237 ML LIQUID (VANILLA) PO SCH ×3 (09:38→16:11)
[2020-10-04] MEDS: THERAHONEY GEL 1.5 OZ TUBE TP SCH (09:38)
--- NOTE | 2020-10-04 09:38 | NUR ---
GIVEN PATIENT MARISSA, WILL HOLD COZAAR AT TIME.
[2020-10-04 12:00] VITALS: BP 144/75
--- NOTE | 2020-10-04 14:13 | NUR ---
PATIENT D/C TO [facility], GIVEN REPORT DAMIÁN/RAUL.
[2020-10-04 16:00] VITALS: BP 174/78
[2020-10-04 16:11] VITALS: BP 174/74
--- NOTE | 2020-10-04 18:29 | NUR ---
2 QUARRY SUPERVISOR PICKED UP PATIENT AND GIVEN REPORT. PATIENT LEFT FACILITY IN STABLE CONDITION.
[2020-10-04] MEDS ORDERED: VANCOMYCIN 1.25 GM in IV D5W 250 ML IV SCH (21:00)
== END 2020-10-04 18:20 | DRG 853 ==
LOC: ER 14:43 → TELE 19:35
PROVIDERS: ADMIT Internal Medicine; ATTEND Nurse Practitioner Family
PROC: 0JBQ0ZZ Excision of Right Foot Subcutaneous Tissue and Fascia, Open Approach (ICD-10-PCS; principal; 2020-09-27)
PROC: 0JBN0ZZ Excision of Right Lower Leg Subcutaneous Tissue and Fascia, Open Approach (ICD-10-PCS; 2020-09-27)
DX: A40.8 Other streptococcal sepsis (principal); G93.41 Metabolic encephalopathy; J18.9 Pneumonia, unspecified organism; I50.33 Acute on chronic diastolic (congestive) heart failure; J96.90 Respiratory failure, unspecified, unspecified whether with hypoxia or hypercapnia; E87.2 Acidosis; N12 Tubulo-interstitial nephritis, not specified as acute or chronic; L97.919 Non-pressure chronic ulcer of unspecified part of right lower leg with unspecified severity; I87.311 Chronic venous hypertension (idiopathic) with ulcer of right lower extremity; L97.319 Non-pressure chronic ulcer of right ankle with unspecified severity; L03.115 Cellulitis of right lower limb; J98.11 Atelectasis; F03.90 Unspecified dementia, unspecified severity, without behavioral disturbance, psychotic disturbance, mood disturbance, and anxiety; K80.20 Calculus of gallbladder without cholecystitis without obstruction; M81.0 Age-related osteoporosis without current pathological fracture; Z20.822 Contact with and (suspected) exposure to COVID-19; Z88.1 Allergy status to other antibiotic agents; Z88.0 Allergy status to penicillin; Z88.2 Allergy status to sulfonamides; Z79.899 Other long term (current) drug therapy; D64.9 Anemia, unspecified; I11.0 Hypertensive heart disease with heart failure; I70.0 Atherosclerosis of aorta; Z96.643 Presence of artificial hip joint, bilateral; G62.9 Polyneuropathy, unspecified; I87.2 Venous insufficiency (chronic) (peripheral); I87.8 Other specified disorders of veins; M41.9 Scoliosis, unspecified; M51.37 Other intervertebral disc degeneration, lumbosacral region; N28.1 Cyst of kidney, acquired; I73.9 Peripheral vascular disease, unspecified
CPT/HCPCS: 36415; 70450-TC; 70496-TC; 70498-TC; 71045-TC; 76705-TC; 80048-TC; 80061-TC; 80076-TC; 80202-TC; 81001; 82962-TC; 83605-TC; 83735-TC; 84100-TC; 84484-TC; 85025-TC; 85730-TC; 87040-TC; 87070-TC; 87081-TC; 87086-TC; 87186-TC; 93307-TC; 93970-TC; 97112-TC; 97116-TC; 97530-TC; A6253; A6403; C9803; G0378; J0456; J1650; J1940; J2185; J2405; J3370; J7030; J7050; J7060; Q9967

== ENCOUNTER → 2020-12-11 | Outpatient (CLI) | payer MEDICARE, OTHER ==
[~2020-12-11] MED LIST changes: -ALEN70TA80 PO; +ASCO-352 PO; +CALC-1143 PO; -CALC-1180 PO; +CHOL100062 PO; +DULO30CA52 PO; +FOLI-85 PO; +FURO20TA4 PO; +GABA-532 PO; +GLUC-236 PO; -HYDR25TA9 PO; +LOSA25TA27 PO; +MAGN400T26 PO; -OSTEO BI-FLEX1 EACH PO; +POTA10TA10 PO; -PRED5TAB48 PO; +SULF-11 PO
== END | disposition home or self-care (01) ==
LOC: MSC 11:30
PROVIDERS: ATTEND Internal Medicine
DX: Z86.19 Personal history of other infectious and parasitic diseases (principal); R53.83 Other fatigue; E04.1 Nontoxic single thyroid nodule; R41.3 Other amnesia; S81.802D Unspecified open wound, left lower leg, subsequent encounter; N04.0 Nephrotic syndrome with minor glomerular abnormality; Z91.81 History of falling; I82.409 Acute embolism and thrombosis of unspecified deep veins of unspecified lower extremity; Z86.39 Personal history of other endocrine, nutritional and metabolic disease; G90.09 Other idiopathic peripheral autonomic neuropathy; M81.0 Age-related osteoporosis without current pathological fracture; G44.229 Chronic tension-type headache, not intractable; M79.673 Pain in unspecified foot; R42 Dizziness and giddiness; I10 Essential (primary) hypertension; H26.9 Unspecified cataract; R73.9 Hyperglycemia, unspecified; R60.9 Edema, unspecified; H91.90 Unspecified hearing loss, unspecified ear

== ENCOUNTER → 2021-01-10 | Outpatient (CLI) | payer MEDICARE, OTHER | END | disposition home or self-care (01) | LOC: MSC 10:00 | PROVIDERS: ATTEND Internal Medicine | DX: R60.0 Localized edema (principal); S81.802D Unspecified open wound, left lower leg, subsequent encounter; M54.2 Cervicalgia; E04.1 Nontoxic single thyroid nodule; R53.83 Other fatigue; N04.0 Nephrotic syndrome with minor glomerular abnormality; Z86.19 Personal history of other infectious and parasitic diseases; R41.3 Other amnesia; I82.409 Acute embolism and thrombosis of unspecified deep veins of unspecified lower extremity; E11.65 Type 2 diabetes mellitus with hyperglycemia; E11.43 Type 2 diabetes mellitus with diabetic autonomic (poly)neuropathy; M81.0 Age-related osteoporosis without current pathological fracture; M19.90 Unspecified osteoarthritis, unspecified site; G44.229 Chronic tension-type headache, not intractable; R42 Dizziness and giddiness; I10 Essential (primary) hypertension; H26.9 Unspecified cataract; H91.90 Unspecified hearing loss, unspecified ear; Z76.0 Encounter for issue of repeat prescription; Z79.899 Other long term (current) drug therapy ==

== ENCOUNTER 2021-01-31 15:00 | Outpatient (CLI) | payer MEDICARE, OTHER | END 2021-01-31 23:59 | disposition home or self-care (01) | LOC: MSC 15:00 | PROVIDERS: ATTEND Internal Medicine | DX: R60.0 Localized edema (principal); M54.2 Cervicalgia; Z86.19 Personal history of other infectious and parasitic diseases; E04.1 Nontoxic single thyroid nodule; R41.3 Other amnesia; S81.802D Unspecified open wound, left lower leg, subsequent encounter; Z91.81 History of falling; R53.83 Other fatigue; N04.0 Nephrotic syndrome with minor glomerular abnormality; I82.409 Acute embolism and thrombosis of unspecified deep veins of unspecified lower extremity; Z86.39 Personal history of other endocrine, nutritional and metabolic disease; G90.09 Other idiopathic peripheral autonomic neuropathy; M81.0 Age-related osteoporosis without current pathological fracture; G44.229 Chronic tension-type headache, not intractable; M79.673 Pain in unspecified foot; R42 Dizziness and giddiness; I10 Essential (primary) hypertension; H26.9 Unspecified cataract; R73.9 Hyperglycemia, unspecified; H91.90 Unspecified hearing loss, unspecified ear; Z79.899 Other long term (current) drug therapy ==

== ENCOUNTER 2021-02-26 11:15 | Outpatient (CLI) | payer MEDICARE, OTHER | END 2021-02-26 23:59 | disposition home or self-care (01) | LOC: MSC 11:15 | PROVIDERS: ATTEND Internal Medicine | DX: R60.0 Localized edema (principal); N04.0 Nephrotic syndrome with minor glomerular abnormality; M54.2 Cervicalgia; H91.90 Unspecified hearing loss, unspecified ear; H26.9 Unspecified cataract; E04.1 Nontoxic single thyroid nodule; Z86.19 Personal history of other infectious and parasitic diseases; S81.802D Unspecified open wound, left lower leg, subsequent encounter; R41.3 Other amnesia; I82.409 Acute embolism and thrombosis of unspecified deep veins of unspecified lower extremity; E11.65 Type 2 diabetes mellitus with hyperglycemia; E11.43 Type 2 diabetes mellitus with diabetic autonomic (poly)neuropathy; R53.83 Other fatigue; M81.0 Age-related osteoporosis without current pathological fracture; G44.229 Chronic tension-type headache, not intractable; M79.673 Pain in unspecified foot; R42 Dizziness and giddiness; I10 Essential (primary) hypertension; Z79.899 Other long term (current) drug therapy ==

== ENCOUNTER 2021-03-26 11:00 | Outpatient (CLI) | payer MEDICARE, OTHER | END 2021-03-26 23:59 | disposition home or self-care (01) | LOC: MSC 11:00 | PROVIDERS: ATTEND Internal Medicine | DX: R60.0 Localized edema (principal); H91.90 Unspecified hearing loss, unspecified ear; M54.2 Cervicalgia; H26.9 Unspecified cataract; S81.802D Unspecified open wound, left lower leg, subsequent encounter; E04.1 Nontoxic single thyroid nodule; Z86.19 Personal history of other infectious and parasitic diseases; R41.3 Other amnesia; I82.409 Acute embolism and thrombosis of unspecified deep veins of unspecified lower extremity; E11.65 Type 2 diabetes mellitus with hyperglycemia; E11.43 Type 2 diabetes mellitus with diabetic autonomic (poly)neuropathy; R53.83 Other fatigue; N04.0 Nephrotic syndrome with minor glomerular abnormality; M19.90 Unspecified osteoarthritis, unspecified site; M81.0 Age-related osteoporosis without current pathological fracture; G44.229 Chronic tension-type headache, not intractable; M79.673 Pain in unspecified foot; R42 Dizziness and giddiness; I10 Essential (primary) hypertension; Z79.899 Other long term (current) drug therapy ==

== ENCOUNTER → 2021-04-25 | Outpatient (CLI) | payer MEDICARE, OTHER | END | disposition home or self-care (01) | LOC: MSC 11:00 | PROVIDERS: ATTEND Internal Medicine | DX: R42 Dizziness and giddiness (principal); R60.0 Localized edema; M54.2 Cervicalgia; H91.90 Unspecified hearing loss, unspecified ear; H26.9 Unspecified cataract; S81.802D Unspecified open wound, left lower leg, subsequent encounter; Z86.19 Personal history of other infectious and parasitic diseases; E04.1 Nontoxic single thyroid nodule; R41.3 Other amnesia; R53.83 Other fatigue; N04.0 Nephrotic syndrome with minor glomerular abnormality; I82.409 Acute embolism and thrombosis of unspecified deep veins of unspecified lower extremity; G90.09 Other idiopathic peripheral autonomic neuropathy; R73.9 Hyperglycemia, unspecified; M81.0 Age-related osteoporosis without current pathological fracture; M19.90 Unspecified osteoarthritis, unspecified site; G44.229 Chronic tension-type headache, not intractable; M79.673 Pain in unspecified foot; I10 Essential (primary) hypertension; Z79.899 Other long term (current) drug therapy ==

== ENCOUNTER → 2021-05-28 | Outpatient (CLI) | payer MEDICARE, OTHER | END | disposition home or self-care (01) | LOC: MSC 07-25 10:15 | PROVIDERS: ATTEND Internal Medicine | DX: R42 Dizziness and giddiness (principal); R60.0 Localized edema; M54.2 Cervicalgia; H91.90 Unspecified hearing loss, unspecified ear; S81.802D Unspecified open wound, left lower leg, subsequent encounter; Z86.19 Personal history of other infectious and parasitic diseases; E04.1 Nontoxic single thyroid nodule; R41.3 Other amnesia; R53.83 Other fatigue; N04.0 Nephrotic syndrome with minor glomerular abnormality; I82.409 Acute embolism and thrombosis of unspecified deep veins of unspecified lower extremity; G90.09 Other idiopathic peripheral autonomic neuropathy; M81.0 Age-related osteoporosis without current pathological fracture; M19.90 Unspecified osteoarthritis, unspecified site; G44.229 Chronic tension-type headache, not intractable; M79.673 Pain in unspecified foot; H26.9 Unspecified cataract; R73.9 Hyperglycemia, unspecified; G62.9 Polyneuropathy, unspecified; I10 Essential (primary) hypertension; Z79.899 Other long term (current) drug therapy ==

== ENCOUNTER 2021-07-18 10:00 | Outpatient (CLI) | payer MEDICARE, OTHER | END 2021-07-18 23:59 | disposition home or self-care (01) | LOC: MSC 10:00 | PROVIDERS: ATTEND Internal Medicine | DX: S81.809D Unspecified open wound, unspecified lower leg, subsequent encounter (principal); R60.0 Localized edema; R73.9 Hyperglycemia, unspecified; R41.3 Other amnesia; R42 Dizziness and giddiness; M54.2 Cervicalgia; H91.90 Unspecified hearing loss, unspecified ear; Z86.19 Personal history of other infectious and parasitic diseases; E04.1 Nontoxic single thyroid nodule; R53.83 Other fatigue; N04.0 Nephrotic syndrome with minor glomerular abnormality; I82.409 Acute embolism and thrombosis of unspecified deep veins of unspecified lower extremity; G90.09 Other idiopathic peripheral autonomic neuropathy; M81.0 Age-related osteoporosis without current pathological fracture; M19.90 Unspecified osteoarthritis, unspecified site; G44.229 Chronic tension-type headache, not intractable; M79.673 Pain in unspecified foot; I10 Essential (primary) hypertension; H26.9 Unspecified cataract; G62.9 Polyneuropathy, unspecified ==

== ENCOUNTER 2021-08-22 09:30 | Outpatient (CLI) | payer MEDICARE, OTHER | END 2021-08-22 23:59 | disposition home or self-care (01) | LOC: MSC 09:30 | PROVIDERS: ATTEND Internal Medicine | DX: R10.13 Epigastric pain (principal); D64.9 Anemia, unspecified; R42 Dizziness and giddiness; S81.809D Unspecified open wound, unspecified lower leg, subsequent encounter; E11.9 Type 2 diabetes mellitus without complications; R41.3 Other amnesia; R60.0 Localized edema; M54.2 Cervicalgia; H91.90 Unspecified hearing loss, unspecified ear; Z86.19 Personal history of other infectious and parasitic diseases; E04.1 Nontoxic single thyroid nodule; R53.83 Other fatigue; N04.0 Nephrotic syndrome with minor glomerular abnormality; I82.409 Acute embolism and thrombosis of unspecified deep veins of unspecified lower extremity; G90.09 Other idiopathic peripheral autonomic neuropathy; M81.0 Age-related osteoporosis without current pathological fracture; M19.90 Unspecified osteoarthritis, unspecified site; G44.229 Chronic tension-type headache, not intractable; M79.673 Pain in unspecified foot; G62.9 Polyneuropathy, unspecified; I10 Essential (primary) hypertension; H26.9 Unspecified cataract ==

== ENCOUNTER 2021-09-19 11:25 | Outpatient (CLI) | payer MEDICARE, OTHER | END 2021-09-19 23:59 | disposition home or self-care (01) | LOC: MSC 11:25 | PROVIDERS: ATTEND Internal Medicine | DX: D64.9 Anemia, unspecified (principal); R42 Dizziness and giddiness; E11.40 Type 2 diabetes mellitus with diabetic neuropathy, unspecified; R10.13 Epigastric pain; S81.802D Unspecified open wound, left lower leg, subsequent encounter; R41.3 Other amnesia; R60.0 Localized edema; M54.2 Cervicalgia; H91.90 Unspecified hearing loss, unspecified ear; Z86.19 Personal history of other infectious and parasitic diseases; E04.1 Nontoxic single thyroid nodule; R53.83 Other fatigue; N04.0 Nephrotic syndrome with minor glomerular abnormality; I82.409 Acute embolism and thrombosis of unspecified deep veins of unspecified lower extremity; G90.09 Other idiopathic peripheral autonomic neuropathy; M81.0 Age-related osteoporosis without current pathological fracture; M19.90 Unspecified osteoarthritis, unspecified site; G44.229 Chronic tension-type headache, not intractable; M79.673 Pain in unspecified foot; I10 Essential (primary) hypertension; H26.9 Unspecified cataract ==

== ENCOUNTER 2021-10-24 09:30 | Outpatient (CLI) | payer MEDICARE, OTHER | END 2021-10-24 23:59 | disposition home or self-care (01) | LOC: MSC 09:30 | PROVIDERS: ATTEND Internal Medicine | DX: R42 Dizziness and giddiness (principal); D64.9 Anemia, unspecified; E11.40 Type 2 diabetes mellitus with diabetic neuropathy, unspecified; I95.9 Hypotension, unspecified; I10 Essential (primary) hypertension; R10.13 Epigastric pain; S81.802D Unspecified open wound, left lower leg, subsequent encounter; R41.3 Other amnesia; R60.0 Localized edema; M54.2 Cervicalgia; H91.90 Unspecified hearing loss, unspecified ear; Z86.19 Personal history of other infectious and parasitic diseases; E04.1 Nontoxic single thyroid nodule; R53.83 Other fatigue; N04.0 Nephrotic syndrome with minor glomerular abnormality; I82.409 Acute embolism and thrombosis of unspecified deep veins of unspecified lower extremity; G90.09 Other idiopathic peripheral autonomic neuropathy; M81.0 Age-related osteoporosis without current pathological fracture; M19.90 Unspecified osteoarthritis, unspecified site; G44.229 Chronic tension-type headache, not intractable; M79.673 Pain in unspecified foot; H26.9 Unspecified cataract ==

== ENCOUNTER → 2021-11-19 | Outpatient (CLI) | payer MEDICARE, OTHER | END | disposition home or self-care (01) | LOC: MSC 16:00 | PROVIDERS: ATTEND Internal Medicine | DX: E87.6 Hypokalemia (principal); D64.9 Anemia, unspecified; E11.40 Type 2 diabetes mellitus with diabetic neuropathy, unspecified; I95.9 Hypotension, unspecified; I10 Essential (primary) hypertension; R42 Dizziness and giddiness; R10.13 Epigastric pain; S81.802D Unspecified open wound, left lower leg, subsequent encounter; R41.3 Other amnesia; M54.2 Cervicalgia; H91.90 Unspecified hearing loss, unspecified ear; Z86.19 Personal history of other infectious and parasitic diseases; E04.1 Nontoxic single thyroid nodule; R53.83 Other fatigue; N04.0 Nephrotic syndrome with minor glomerular abnormality; I82.409 Acute embolism and thrombosis of unspecified deep veins of unspecified lower extremity; G90.09 Other idiopathic peripheral autonomic neuropathy; M81.0 Age-related osteoporosis without current pathological fracture; M19.90 Unspecified osteoarthritis, unspecified site; G44.229 Chronic tension-type headache, not intractable; M79.673 Pain in unspecified foot; H26.9 Unspecified cataract ==

== ENCOUNTER 2021-11-26 10:00 | Outpatient (CLI) | payer MEDICARE, OTHER | END 2021-11-26 23:59 | disposition home or self-care (01) | LOC: MSC 10:00 | PROVIDERS: ATTEND Internal Medicine | DX: S81.802D Unspecified open wound, left lower leg, subsequent encounter (principal); I10 Essential (primary) hypertension; E11.40 Type 2 diabetes mellitus with diabetic neuropathy, unspecified; I95.9 Hypotension, unspecified; R42 Dizziness and giddiness; D64.9 Anemia, unspecified; R10.13 Epigastric pain; R41.3 Other amnesia; M54.2 Cervicalgia; H91.90 Unspecified hearing loss, unspecified ear; Z86.19 Personal history of other infectious and parasitic diseases; E04.1 Nontoxic single thyroid nodule; R53.83 Other fatigue; N04.0 Nephrotic syndrome with minor glomerular abnormality; I82.409 Acute embolism and thrombosis of unspecified deep veins of unspecified lower extremity; G90.09 Other idiopathic peripheral autonomic neuropathy; M81.0 Age-related osteoporosis without current pathological fracture; M19.90 Unspecified osteoarthritis, unspecified site; G44.229 Chronic tension-type headache, not intractable; M79.673 Pain in unspecified foot; H26.9 Unspecified cataract; R60.9 Edema, unspecified ==

== ENCOUNTER 2021-12-18 14:00 | Outpatient (CLI) | payer MEDICARE, OTHER | END 2021-12-18 23:59 | disposition home or self-care (01) | LOC: MSC 14:00 | PROVIDERS: ATTEND Internal Medicine | DX: U07.1 COVID-19 (principal); S81.809D Unspecified open wound, unspecified lower leg, subsequent encounter; D64.9 Anemia, unspecified; E11.40 Type 2 diabetes mellitus with diabetic neuropathy, unspecified; I95.9 Hypotension, unspecified; I10 Essential (primary) hypertension; R42 Dizziness and giddiness; R10.13 Epigastric pain; R41.3 Other amnesia; M54.2 Cervicalgia; H91.90 Unspecified hearing loss, unspecified ear; Z86.19 Personal history of other infectious and parasitic diseases; E04.1 Nontoxic single thyroid nodule; R53.83 Other fatigue; N04.0 Nephrotic syndrome with minor glomerular abnormality; I82.409 Acute embolism and thrombosis of unspecified deep veins of unspecified lower extremity; G90.09 Other idiopathic peripheral autonomic neuropathy; M81.0 Age-related osteoporosis without current pathological fracture; M19.90 Unspecified osteoarthritis, unspecified site; G44.229 Chronic tension-type headache, not intractable; H26.9 Unspecified cataract ==

== ENCOUNTER 2022-01-16 10:30 | Outpatient (CLI) | payer MEDICARE, OTHER | END 2022-01-16 23:59 | disposition home or self-care (01) | LOC: MSC 10:30 | PROVIDERS: ATTEND Internal Medicine | DX: Z51.89 Encounter for other specified aftercare (principal); H26.9 Unspecified cataract; U07.1 COVID-19; S91.309D Unspecified open wound, unspecified foot, subsequent encounter; D64.9 Anemia, unspecified; I10 Essential (primary) hypertension; E11.40 Type 2 diabetes mellitus with diabetic neuropathy, unspecified; I95.9 Hypotension, unspecified; R42 Dizziness and giddiness; R10.13 Epigastric pain; R41.3 Other amnesia; M54.2 Cervicalgia; H91.90 Unspecified hearing loss, unspecified ear; Z86.19 Personal history of other infectious and parasitic diseases; E04.1 Nontoxic single thyroid nodule; R53.83 Other fatigue; N04.0 Nephrotic syndrome with minor glomerular abnormality; I82.409 Acute embolism and thrombosis of unspecified deep veins of unspecified lower extremity; G90.09 Other idiopathic peripheral autonomic neuropathy; M81.0 Age-related osteoporosis without current pathological fracture; M19.90 Unspecified osteoarthritis, unspecified site; G44.229 Chronic tension-type headache, not intractable; M79.673 Pain in unspecified foot; R60.9 Edema, unspecified ==

== ENCOUNTER 2022-02-25 10:00 | Outpatient (CLI) | payer MEDICARE, OTHER | END 2022-02-25 23:59 | disposition home or self-care (01) | LOC: MSC 10:00 | PROVIDERS: ATTEND Internal Medicine | DX: J06.9 Acute upper respiratory infection, unspecified (principal); Z86.16 Personal history of COVID-19; S80.10XD Contusion of unspecified lower leg, subsequent encounter; S81.809D Unspecified open wound, unspecified lower leg, subsequent encounter; H26.9 Unspecified cataract; D64.9 Anemia, unspecified; I10 Essential (primary) hypertension; E11.40 Type 2 diabetes mellitus with diabetic neuropathy, unspecified; I95.9 Hypotension, unspecified; R42 Dizziness and giddiness; R10.13 Epigastric pain; R41.3 Other amnesia; M54.2 Cervicalgia; H91.90 Unspecified hearing loss, unspecified ear; Z86.19 Personal history of other infectious and parasitic diseases; E04.1 Nontoxic single thyroid nodule; R53.83 Other fatigue; N04.0 Nephrotic syndrome with minor glomerular abnormality; I82.409 Acute embolism and thrombosis of unspecified deep veins of unspecified lower extremity; G90.09 Other idiopathic peripheral autonomic neuropathy; M81.0 Age-related osteoporosis without current pathological fracture; M19.90 Unspecified osteoarthritis, unspecified site; G44.229 Chronic tension-type headache, not intractable ==